=== PATIENT | male | born 1945 | race Caucasian/White ===

== ENCOUNTER 2019-01-03 15:04 | Emergency (ER) | payer MEDICARE, OTHER, SELFPAY ==
[2019-01-03 15:20] VITALS: BP 128/81; PULSE 69; RESP 20; TEMP 36.7; O2SAT 98
[2019-01-03 17:00] VITALS: BP 136/69; PULSE 77; RESP 16; O2SAT 99
[2019-01-03 18:00] VITALS: BP 136/77; PULSE 78; RESP 18; O2SAT 95
--- NOTE | 2019-01-03 18:11 | ED.EXTPRO ---
HPI - Extremity Problem General Chief complaint: Extremity Problem,Nontraumatic Stated complaint: thinks he has gout of his right foot Time Seen by Provider: 01/03/19 18:11 Source: patient and family Mode of arrival: ambulatory Limitations: no limitations History of Present Illness HPI Narrative: 73-year-old male, never smoker with history of gout, hypertension, diabetes and cellulitis presents with a chief complaint right great toe and ft pain with swelling and redness. He states this is very similar to prior episodes gout. He denies any systemic findings such as fever, chills nor nausea or vomiting. He denies any injury. He denies any chest pain, shortness of breath. MD Complaint: extremity pain, extremity swelling and joint swelling Onset (ago): day(s) Pain Consistency: constant Location: right Quality: aching and sharp Radiation: none Relieving factors: rest Exacerbating factors: weight bearing and walking Associated symptoms: denies other symptoms Related Data Home Medications Medication Instructions Recorded Confirmed atorvastatin [Lipitor] 10 mg PO QDAY #0 11/12/16 01/03/19 benazepril-hydrochlorothiazide 1 tab PO QDAY #0 11/12/16 01/03/19 lansoprazole [Prevacid] 15 mg PO DAILY #0 11/12/16 01/03/19 omega 5-cyv-ybb-fish oil [Fish Oil] 1,000 mg PO DAILY #0 03/29/17 01/03/19 multivitamin 1 tab PO DAILY 01/03/19 01/03/19 Previous Rx's Medication Instructions Recorded colchicine 0.6 mg PO DAILY #14 tab 01/03/19 doxycycline monohydrate 100 mg PO BID 10 Days #20 cap 01/03/19 hydrocodone-acetaminophen 1 tab PO Q4-6H PRN #10 tab 01/03/19 indomethacin 50 mg PO TID #20 cap 01/03/19 Allergies Allergy/AdvReac Type Severity Reaction Status Date / Time ampicillin [AMPICILLIN] Allergy Unknown Verified 04/14/18 13:55 ceftriaxone [From ROCEPHIN] Allergy Unknown Verified 04/14/18 13:55 cephalexin [CEPHALEXIN] Allergy Unknown Verified 04/14/18 13:55 erythromycin base Allergy Unknown Verified 04/14/18 13:55 [ERYTHROMYCIN BASE] levofloxacin [From LEVAQUIN] Allergy Unknown HALLUCINATI Verified 04/14/18 13:55 ON Penicillins [PENICILLINS] Allergy Unknown Verified 04/14/18 13:55 Review of Systems Constitutional Denies chills, Denies fever(s), Denies lethargy and Denies weakness Eyes Denies change in vision, Denies eye discharge, Denies irritation and Denies loss of vision ENT Ears, Nose, Mouth, and Throat: Denies change in voice, Denies neck pain and Denies sore throat Cardiovascular Denies chest pain, Denies irregular heart rhythm, Denies lightheadedness, Denies palpitations, Denies dyspnea, Denies dyspnea on exertion and Denies orthopnea Respiratory Denies cough, Denies dyspnea, Denies dyspnea on exertion and Denies wheezing Gastrointestinal Gastrointestinal: Denies abdominal pain, Denies change in bowel habits, Denies diarrhea, Denies nausea and Denies vomiting Genitourinary Denies hematuria, Denies flank pain, Denies urinary incontinence and Denies urinary urgency Musculoskeletal Reports joint swelling, Reports limited range of motion and Denies neck pain Integumentary/Breasts Denies pruritus, Reports erythema, Denies rash, Reports skin pain, Reports skin swelling and Denies wounds Neurologic Denies confusion, Denies loss of vision and Denies weakness Psychiatric Denies anxiety, Denies confusion, Denies depression, Denies homicidal ideation and Denies suicidal ideation Endocrine Denies palpitations Hematologic/Lymphatic Denies easy bruising Allergic/Immunologic Denies wheezing PFSH Social History Smoking Status: Never smoker Social History Smoking Status: Never smoker Exam Narrative Exam Narrative: GENERAL: 73-year-old male, a bit overweight, well nourished, alert and oriented, in mild distress HEAD: Atraumatic. Normocephalic. No temporal or scalp tenderness. EYES: Pupils equal round and reactive. Extraocular motions intact. No scleral icterus. No injection or drainage. ENT: Nose without bleeding, purulent drainage or septal hematoma. Throat without erythema, tonsillar hypertrophy or exudate. Uvula midline. Airway patent. NECK: Trachea midline. No JVD or lymphadenopathy. Supple, nontender, no meningeal signs. CARDIOVASCULAR: Regular rate and rhythm without murmurs, gallops, or rubs. RESPIRATORY: Clear to auscultation. Breath sounds equal bilaterally. No wheezes, rales, or rhonchi. GASTROINTESTINAL: Abdomen soft, non-tender, nondistended. No hepato-splenomegaly, or palpable masses. No guarding. EXTREMITIES: Right great toe is erythematous, swollen and quite tender to palpation. The erythema extends a bit on the dorsum of his foot is warm to the touch. BACK: Nontender without deformity or crepitance. No flank tenderness. NEURO: AOx3. SKIN: No rash or erythema. Initial Vital Signs Initial Vital Signs: Vital Signs Temperature 98.0 F 01/03/19 15:20 Pulse Rate 69 01/03/19 15:20 Respiratory Rate 20 01/03/19 15:20 Blood Pressure 128/81 01/03/19 15:20 Pulse Oximetry 98 01/03/19 15:20 Course Orders Ordered: Discontinued Medications Hydrocodone Bitart/Acetaminophen (Vicodin Prepack) 1 bottle MISC SEEINSTR ONE Stop: 01/03/19 20:10 Last Admin: 01/03/19 20:18 Dose: 1 bottle Colchicine (Colcrys) 1.2 mg PO NOW ONE Stop: 01/03/19 18:27 Last Admin: 01/03/19 19:00 Dose: 1.2 mg Vital Signs - 8 hr 01/03/19 19:52 Pulse Rate 94 H Blood Pressure [Left Arm] 126/48 L Pulse Oximetry 97 MDM - Extremity (Nontraumatic) Lab Data Result diagrams: 01/03/19 18:40 Lab Results 01/03/19 01/03/19 Range/Units 18:40 18:40 WBC 9.9 (4.5-11.0) X10^3/uL RBC 3.68 L (4.5-5.9) X10^6/uL Hgb 12.7 L (13.5-17.5) g/dL Hct 37.4 L (41-53) % MCV 101.6 H (80-100) fL MCH 34.6 H (26-34) PG MCHC 34.1 (30-36) % RDW 12.4 (11.6-14.8) % Plt Count 167 (150-400) X10^3/uL Neut % (Auto) 78.4 H (50-75) % Lymph % (Auto) 7.4 L (25-40) % [place] % (Auto) 12.6 (3-14) % Eos % (Auto) 1.3 L (2-4) % Baso % (Auto) 0.3 (0-2) % Neut # (Auto) 7700 H (4465-4332) /uL Lymph # (Auto) 700 L (2283-6100) /uL [place] # (Auto) 1300 H (0-900) /uL Eos # (Auto) 100 (0-450) /uL Baso # (Auto) 0 (0-100) /uL ESR 53 H (0-15) MM/HR Uric Acid 8.0 (3.5-8.5) mg/dL C-Reactive Protein 9.0 H (<1.0) mg/dL Imaging Data Abdominal x-ray: Attestation: I personally reviewed and interpreted this imaging study as follows: My impression: non specific bowel gas pattern MDM Narrative Medical decision making narrative: The patient presents with chief complaint of symptoms consistent with prior episode of gout, additionally the patient has had cellulitis in the past and states this feels much different. On exam he certainly has concern for cellulitis. Labs are unhelpful in differentiating. Ultrasound rules out a clot. I discussed at length with the patient my desire to treat both cellulitis and gout, he shares this opinion and understands. Discharge Plan Departure Patient Disposition: Home Clinical Impression: Gout Qualifiers: Gout site: foot Gout etiology: unspecified cause Chronicity: acute Laterality: right Qualified Code(s): M10.9 - Gout, unspecified Cellulitis Qualifiers: Site of cellulitis: extremity Site of cellulitis of extremity: lower extremity Laterality: right Qualified Code(s): L03.115 - Cellulitis of right lower limb Discharge Date/Time: 01/03/19 20:31 Interventions: ED Discharge Assessment Last Done: 01/03/19 20:29 Instructions: DI for Cellulitis -- Adult, DI for Gout Activity Restrictions/Additional Instructions: *You have been diagnosed with [ right foot gout, possible early cellulitis ] *What to do: *Take medications as directed *Follow up with your primary care provider in 2-3 days, call for an appointment. Let them know you were seen in the Emergency Department and that we ask that you be seen in follow up *Return to ER if you should have any new, worsening or concerning symptoms, such as [ ] Prescriptions: New hydrocodone-acetaminophen 5-325 mg tablet 1 tab PO Q4-6H PRN (Reason: pain) Qty: 10 RF: 0 doxycycline monohydrate 100 mg capsule 100 mg PO BID 10 Days Qty: 20 RF: 0 colchicine 0.6 mg tablet 0.6 mg PO DAILY Qty: 14 RF: 0 indomethacin 50 mg capsule 50 mg PO TID Qty: 20 RF: 0 No Action benazepril-hydrochlorothiazide 20 MG/25 MG tablet 1 tab PO QDAY Qty: 0 RF: 0 atorvastatin [Lipitor] 10 MG tablet 10 mg PO QDAY Qty: 0 RF: 0 lansoprazole [Prevacid] 15 MG capsule,delayed release(DR/EC) 15 mg PO DAILY Qty: 0 RF: 0 omega 0-jxe-xqt-fish oil [Fish Oil] 1,000 MG capsule 1,000 mg PO DAILY Qty: 0 RF: 0 multivitamin Tablet 1 tab PO DAILY RF: 0
--- NOTE | 2019-01-03 18:26 | DI.US.S_ITS ---
PROCEDURE: US PERIPH VENOUS LOW EXTREM RT INDICATIONS: PAIN, EDEMA TECHNIQUE: Real-time imaging, as well as color and pulse Doppler interrogation, were performed of the lower extremity deep veins from the inguinal ligament to the popliteal fossa. COMPARISON: None. FINDINGS: The deep veins are normally compressible, and free of intraluminal thrombus. Color and pulse Doppler demonstrate normal phasic intraluminal flow. There is normal augmentation response to distal compression maneuver. IMPRESSION: Negative right lower extremity duplex ultrasound for DVT. Dictated by: Chauncey Call M.D. on 01/03/2019 at 19:12 Approved by: Chauncey Call M.D. on 01/03/2019 at 19:13
[2019-01-03 18:58] LABS: Add Manual Diff / Slide Review NO; Basophils Absolute Auto 0 /uL (0-100); Basophils Percent Auto 0.3 % (0-2); Eosinophils Absolute Auto 100 /uL (0-450); Eosinophils Percent Auto 1.3 % (2-4); Hematocrit 37.4 % (41-53); Hemoglobin 12.7 g/dL (13.5-17.5); Lymphocytes Absolute Auto 700 /uL (1100-4500); Lymphocytes Percent Auto 7.4 % (25-40); Mean Corpuscular HGB Conc 34.1 % (30-36); Mean Corpuscular Hemoglobin 34.6 PG (26-34); Mean Corpuscular Volume 101.6 fL (80-100); Monocytes Absolute Auto 1300 /uL (0-900); Monocytes Percent Auto 12.6 % (3-14); Neutrophils Absolute Auto 7700 /uL (1500-7000); Neutrophils Percent Auto 78.4 % (50-75); Platelet Count 167 X10^3/uL (150-400); Red Blood Cell Count 3.68 X10^6/uL (4.5-5.9); Red Cell Distribution Width 12.4 % (11.6-14.8); White Blood Cell Count 9.9 X10^3/uL (4.5-11.0)
[2019-01-03] MEDS: COLCHICINE 0.6 MG TABLET 1.2 MG PO (19:00)
[2019-01-03 19:30] LABS: Erythrocyte Sedimentation Rate 53 MM/HR (0-15)
[2019-01-03 19:52] VITALS: BP 126/48; PULSE 94; O2SAT 97
[2019-01-03] MEDS: HYDROCODONE/ACET 5/325 PREPACK 1 BOTTLE MISC (20:18)
== END 2019-01-03 20:31 | disposition home or self-care (01) ==
PROVIDERS: Emergency Provider Emergency Medicine
DX: M10.9 Gout, unspecified (principal); L03.115 Cellulitis of right lower limb
CPT/HCPCS: 84550; 85025; 85651; 86140; 93971; 99283; 99284

== ENCOUNTER 2019-08-10 14:10 | Emergency (ER) | payer MEDICARE, OTHER, SELFPAY ==
[2019-08-10 14:18] VITALS: BP 146/84; PULSE 98; RESP 16; TEMP 37.1; O2SAT 99; BMI 30.5
== END 2019-08-10 16:05 | disposition left against medical advice (07) ==
PROVIDERS: Emergency Provider Emergency Medicine
DX: M79.645 Pain in left finger(s) (principal)
CPT/HCPCS: 99281

== ENCOUNTER 2019-09-12 10:52 | Emergency (ER) | payer MEDICARE, OTHER, SELFPAY ==
[2019-09-12 10:55] VITALS: BP 153/77; PULSE 84; RESP 13; TEMP 36.5; O2SAT 99
--- NOTE | 2019-09-12 12:10 | DI.US.S_ITS ---
PROCEDURE: US PERIPH VENOUS LOW EXTREM LT INDICATIONS: PAIN, EDEMA TECHNIQUE: Real-time imaging, as well as color and pulse Doppler interrogation, were performed of the lower extremity deep veins from the inguinal ligament to the popliteal fossa. COMPARISON: None. FINDINGS: The common femoral, femoral and popliteal veins are normally compressible, and free of intraluminal thrombus. Color and pulse Doppler demonstrate normal phasic intraluminal flow. There is normal augmentation response to distal compression maneuver. IMPRESSION: No deep venous thrombosis in the left lower extremity. Dictated by: Ame Joseph M.D. on 09/12/2019 at 12:35 Approved by: Ame Joseph M.D. on 09/12/2019 at 12:35
--- NOTE | 2019-09-12 12:45 | ED_ITS ---
HPI - Extremity Problem <BIRDIE Aviles - Last Filed: 09/12/19 21:49> General Chief complaint: Extremity Problem,Nontraumatic Stated complaint: POSSIBLE BLOOD CLOT OR CELUTIUS LEFT LEG Time Seen by Provider: 09/12/19 12:10 Source: patient Mode of arrival: Ambulatory Limitations: no limitations History of Present Illness HPI Narrative: This is a pleasant 74-year-old gentleman, nonsmoker, who presents to ED with chief complain of nontraumatic left lower leg swelling for last 3 days. Patient reports history of cellulitis on the same leg which starts from heel with red streaks along the swelling. Patient denies any erythema at this time. Patient denies fever, chills, nausea or vomiting, warm to touch, or pain. Patient recently had left hand surgery and had been on narcotic pain medications, [place], and had decreased appetite and has not been eating well. Patient denies chest pain, breathing difficulty. Patient has been elevating affected leg over the weekend but the swelling had not improved much. Patient does take full dose of aspirin daily. Related Data Home Medications Medication Instructions Recorded Confirmed atorvastatin [Lipitor] 10 mg PO DAILY #0 11/12/16 09/12/19 benazepril-hydrochlorothiazide 1 tab PO DAILY #0 11/12/16 09/12/19 lansoprazole [Prevacid] 15 mg PO DAILY #0 11/12/16 09/12/19 omega 3-isu-ewn-fish oil [Fish Oil] 1,000 mg PO DAILY #0 03/29/17 01/03/19 multivitamin 1 tab PO DAILY 01/03/19 09/12/19 fluocinonide 1 applic TOPICAL DIRECTED 08/10/19 09/12/19 sulfamethoxazole-trimethoprim 1 tab PO BID 09/12/19 09/12/19 Allergies Allergy/AdvReac Type Severity Reaction Status Date / Time ampicillin [AMPICILLIN] Allergy Unknown Verified 08/10/19 14:23 ceftriaxone [From ROCEPHIN] Allergy Unknown Verified 08/10/19 14:23 cephalexin [CEPHALEXIN] Allergy Unknown Verified 08/10/19 14:23 erythromycin base Allergy Unknown Verified 08/10/19 14:23 [ERYTHROMYCIN BASE] levofloxacin [From LEVAQUIN] Allergy Unknown HALLUCINATI Verified 08/10/19 14:23 ON Penicillins [PENICILLINS] Allergy Unknown Verified 08/10/19 14:23 Review of Systems <BIRDIE Aviles - Last Filed: 09/12/19 21:49> Review of Systems Narrative: General: Denies fever, chills, fatigue, malaise, sweats. HEENT: Denies sinus pain, ear pain, sore throat, difficulty swallowing, dizziness. Respiratory: Denies dyspnea, cough, wheezing, hemoptysis, sputum. Cardiovascular: Denies chest pain, palpitations, orthopnea, edema. Gastrointestinal: Denies nausea, vomiting, abdominal pain, diarrhea, constipation, melena. : Denies dysuria, frequency, incontinence, hematuria, urinary retention. Musculoskeletal: See HPI Skin: Denies rash, skin lesions, or other. Neurologic: Denies weakness, headache, numbness, change in speech, confusion, seizures, incoordination. Psychiatric: No concerning psychosocial issues. 12-point review of systems is negative except for those stated above. Patient History <BIRDIE Aviles - Last Filed: 09/12/19 21:49> Surgical History Hx of hand surgery (Acute) Social History Smoking Status: Never smoker alcohol intake frequency: 0-2 drinks per day Exam <BIRDIE Aviles - Last Filed: 09/12/19 21:49> Narrative Exam Narrative: GEN: Alert, oriented x 3, well appearing and nourished, and in no acute distress. Head: Normal cephalic, atraumatic. No scalp or temporal tenderness, palpable mass or rash. EYES: Pupils are equal, round, and reactive to light and accommodation. Extraocular muscles are intact bilaterally. There is no subconjunctival hemorrhage, exudate and sclera non-icteric. ENT: Bilateral auditory canals and tympanic membranes clear. Hearing grossly intact. Nose without bleeding, purulent discharge or deviation. Facial sinuses nontender to palpate. Mucous membrane moist, no mucosal lesion. Throat without erythema, tonsillar hypertrophy or exudate. Uvula in midline, airway patent. Neck: Trachea in midline. No JVD, non-tender without lymphadenopathy. No masses or thyroid megaly. Supple, non-tender and no meningeal signs. CARDIAC: Normal regular rate and rhythm without murmurs, gallops, or rubs. No ch est wall tenderness. No peripheral edema, cyanosis or pallor. Capillary refill is less than 2 seconds. RESPIRATORY: Lungs are clear to auscultate bilaterally. No cough, wheezes, rales, or rhonchi. No stridor, respiratory distress, increase work of breathing, or accessary muscle used. ABD: Abdomen soft, nontender and non-distended. No guarding or rebound tenderness to palpate. Bowel sounds are normal in all 4 quadrants. There is no palpable masses or organomegaly. EXT: Hand splint applied on left hand. SKIN: Warm, dry, normal color for patient. No erythema, lesions or rash over visible areas. BACK: Nontender without deformity or crepitance. No flank tenderness. NEUROLOGICAL: Alert and oriented to place, time and person. Sensation and motor function intact bilaterally. No facial droops, dysphasia. PSYCHIATRIC: Good judgement and reason, without hallucinations, abnormal affect or abnormal behaviors during the examination. Initial Vital Signs Initial Vital Signs: Vital Signs Temperature 97.7 F 09/12/19 10:55 Pulse Rate 84 09/12/19 10:55 Respiratory Rate 13 09/12/19 10:55 Blood Pressure 153/77 H 09/12/19 10:55 Pulse Oximetry 99 09/12/19 10:55 Extrem Left lower extremity: knee Details: normal to inspection and normal ROM; no tenderness, lower leg Details: localized swelling (Generalized swelling to Knee below) and pitting edema Details: 2+; no erythema, no tenderness, no palpable cords, no abrasions, no lacerations, no ecchymosis, no crepitus, no foreign bodies, no penetrating wound, no deformity and no unusual warmth, ankle Details: swelling and normal ROM; no warmth and foot Details: normal capillary refill, vascular exam Details: dorsalis pedis pulse present and normal capillary refill, tendon exam Details: active flexion normal and active extension normal and motor-sensory exam Details: light-touch normal <Sol Sharma MD - Last Filed: 09/14/19 04:39> Initial Vital Signs Initial Vital Signs: Vital Signs Temperature 97.7 F 09/12/19 10:55 Pulse Rate 84 09/12/19 10:55 Respiratory Rate 13 09/12/19 10:55 Blood Pressure 153/77 H 09/12/19 10:55 Pulse Oximetry 99 09/12/19 10:55 Scores <BIRDIE Aviles - Last Filed: 09/12/19 21:49> GCS [place] coma scale eye opening: Spontaneous [place] coma scale verbal response: Orientated [place] coma scale motor response: Obey commands [place] coma scale total score: 15 Wells' Criteria for DVT Active Cancer (Treatment within 6 months): No Bedridden recently >3 days or major surgery within 4 weeks: No Calf Swelling >3cm compared to other leg: Yes Collateral (nonvericose) superficial veins present: No Entire leg swollen: No Localized tenderness along the deep vein system: No Pitting edema, confined to symtomatic leg: Yes Paralysis, paresis, or recent plaster immobilization of ext: No Previously documented DVT: No Alternative dx to DVT as likely or more likely: Yes Wells' criteria for DVT: 0 Course <BIRDIE Aviles - Last Filed: 09/12/19 21:49> Orders Ordered: ED Orders 09/12/19 13:00 B Type Natriuretic Peptide Stat Complete Blood Count AUTO DIFF Stat Comprehensive Metabolic Panel Stat Partial Thromboplastin Time Stat Consultations Consultation #1: Dr. Flynn (PCP) for close follow up for repeat Na/Cl test and leg swelling Vital Signs Vital signs: Vital Signs - 8 hr 09/12/19 10:55 Temperature 97.7 F Pulse Rate 84 Respiratory Rate 13 Blood Pressure 153/77 H Pulse Oximetry 99 <Sol Sharma MD - Last Filed: 09/14/19 04:39> Orders Ordered: ED Orders 09/12/19 13:00 B Type Natriuretic Peptide Stat Complete Blood Count AUTO DIFF Stat Comprehensive Metabolic Panel Stat Partial Thromboplastin Time Stat Vital Signs Vital signs: Vital Signs - 8 hr 09/12/19 10:55 Temperature 97.7 F Pulse Rate 84 Respiratory Rate 13 Blood Pressure 153/77 H Pulse Oximetry 99 MDM - Extremity (Nontraumatic) <BIRDIE Aviles - Last Filed: 09/12/19 21:49> Differential Diagnosis Differential diagnosis: Likely cellulitis, lower extremity edema, deep vein thrombosis of lower extremity and other Medical Records Attestation: I reviewed the patient's medical records. Lab Data Attestation: I reviewed the patient's lab results. Result diagrams: 09/12/19 13:00 09/12/19 13:00 Labs: Lab Results 09/12/19 09/12/19 09/12/19 Range/Units 13:00 13:00 13:00 WBC 8.1 (4.5-11.0) X10^3/uL RBC 3.55 L (4.5-5.9) X10^6/uL Hgb 12.5 L (13.5-17.5) g/dL Hct 35.3 L (41-53) % MCV 99.5 (80-100) fL MCH 35.4 H (26-34) PG MCHC 35.5 (30-36) % RDW 13.1 (11.6-14.8) % Plt Count 198 (150-400) X10^3/uL Neut % (Auto) 72.0 (50-75) % Lymph % (Auto) 12.0 L (25-40) % [place] % (Auto) 14.9 H (3-14) % Eos % (Auto) 0.6 L (2-4) % Baso % (Auto) 0.5 (0-2) % Neut # (Auto) 5900 (0465-0323) /uL Lymph # (Auto) 1000 L (1029-4572) /uL [place] # (Auto) 1200 H (0-900) /uL Eos # (Auto) 0 (0-450) /uL Baso # (Auto) 0 (0-100) /uL APTT 35 (26.4-36.2) SECONDS Sodium 128 L (137-145) mmol/L Potassium 3.6 (3.4-5.1) mmol/L Chloride 87 L (98-107) mmol/L Carbon Dioxide 27 (22-32) mmol/L BUN 22 H (9-20) mg/dL Creatinine 1.50 H (0.66-1.25) mg/dL Estimated GFR 45.7 L (>60) mL/min BUN/Creatinine Ratio 14.7 (6-22) Glucose 93 (80-110) mg/dL Calcium 9.3 (8.4-10.2) mg/dL Total Bilirubin 1.1 (0.2-1.3) mg/dL AST 52 (17-59) IU/L ALT 28 (<50) IU/L Alkaline Phosphatase 81 (38-126) U/L B-Natriuretic Peptide < 100 (<100) Total Protein 7.0 (6.3-8.2) g/dL Albumin 4.3 (3.5-5.0) g/dL Globulin 2.7 (1.7-4.1) g/dL Albumin/Globulin Ratio 1.6 (1.0-2.8) Imaging Data US-LLE doppler: Radiologist's impression: [address] [address] Ultrasound Report Signed Patient: Matthew Ochoa EMR#: [id number] : 5Acct:[id number] Age/Sex: 74 / MDate of Service: 09/12/19 Loc: ED Accession Number: [id number] Procedure: US periph venous low extrem lt Ordering Provider: Sol Sharma MD PROCEDURE: US PERIPH VENOUS LOW EXTREM LT INDICATIONS: PAIN, EDEMA TECHNIQUE: Real-time imaging, as well as color and pulse Doppler interrogation, were performed of the lower extremity deep veins from the inguinal ligament to the popliteal fossa. COMPARISON: None. FINDINGS: The common femoral, femoral and popliteal veins are normally compressible, and free of intraluminal thrombus. Color and pulse Doppler demonstrate normal phasic intraluminal flow. There is normal augmentation response to distal compression maneuver. IMPRESSION: No deep venous thrombosis in the left lower extremity. Dictated by: Ame Joseph M.D. on 09/12/2019 at 12:35 Approved by: Ame Joseph M.D. on 09/12/2019 at 12:35 [facility] Narrative Medical decision making narrative: This is a pleasant 74-year-old gentleman who presents to ED with nontraumatic left lower leg swelling for 3 days. Patient daily takes full dose of aspirin. Patient does not endorse constitutional symptoms or pain on affected foot. Doppler Ultrasound test on left lower leg does not show DVT. No leukocytosis or shift left seen today's blood test. Mildly decreased H&H as 12.5/35.3. Also noted decreased GFR of 45.7 with Creatine of 1.5 with mildly elevated BUN of 22. Patient had same creatinine level about 2 years ago which he had recovered 4 months after. The Patient's lung sounds are clear and BNP was negative. Patient has no history of hyponatremia in the past. Today's sodium and chloride was low as 128 and 87. This may due to given patient's history of decreased p.o. intake after the surgery. Patient reports started to eat more last couple of days. Patient does report mild musculoskeletal witnessed. Patient denies headache, nausea or vomiting, seizure activity. Patient was able to tolerate a sandwich and liquid without nausea or vomiting in ED. Spoke with Dr. Flynn at [facility] and informed the findings from today's visit. Dr. Flynn agrees with outpatient treatment with increasing NaCl intake orally to monitor for signs and symptoms for cellulitis. Close follow-up with Dr. Hinojosa for recheck in 2-3 days and to set up an appointment. Informed the findings and the discussions with Dr. Flynn and the patient agrees with the treatment plan. No further questions were expressed at this time. <Sol Sharma MD - Last Filed: 09/14/19 04:39> Lab Data Labs: Lab Results 09/12/19 09/12/19 09/12/19 Range/Units 13:00 13:00 13:00 WBC 8.1 (4.5-11.0) X10^3/uL RBC 3.55 L (4.5-5.9) X10^6/uL Hgb 12.5 L (13.5-17.5) g/dL Hct 35.3 L (41-53) % MCV 99.5 (80-100) fL MCH 35.4 H (26-34) PG MCHC 35.5 (30-36) % RDW 13.1 (11.6-14.8) % Plt Count 198 (150-400) X10^3/uL Neut % (Auto) 72.0 (50-75) % Lymph % (Auto) 12.0 L (25-40) % [place] % (Auto) 14.9 H (3-14) % Eos % (Auto) 0.6 L (2-4) % Baso % (Auto) 0.5 (0-2) % Neut # (Auto) 5900 (8839-9610) /uL Lymph # (Auto) 1000 L (5596-1405) /uL [place] # (Auto) 1200 H (0-900) /uL Eos # (Auto) 0 (0-450) /uL Baso # (Auto) 0 (0-100) /uL APTT 35 (26.4-36.2) SECONDS Sodium 128 L (137-145) mmol/L Potassium 3.6 (3.4-5.1) mmol/L Chloride 87 L (98-107) mmol/L Carbon Dioxide 27 (22-32) mmol/L BUN 22 H (9-20) mg/dL Creatinine 1.50 H (0.66-1.25) mg/dL Estimated GFR 45.7 L (>60) mL/min BUN/Creatinine Ratio 14.7 (6-22) Glucose 93 (80-110) mg/dL Calcium 9.3 (8.4-10.2) mg/dL Total Bilirubin 1.1 (0.2-1.3) mg/dL AST 52 (17-59) IU/L ALT 28 (<50) IU/L Alkaline Phosphatase 81 (38-126) U/L B-Natriuretic Peptide < 100 (<100) Total Protein 7.0 (6.3-8.2) g/dL Albumin 4.3 (3.5-5.0) g/dL Globulin 2.7 (1.7-4.1) g/dL Albumin/Globulin Ratio 1.6 (1.0-2.8) Discharge Plan Departure Patient Disposition: Home Clinical Impression: Edema of left lower extremity, Hyponatremia, Hypochloremia, Decreased renal function Discharge Date/Time: 09/12/19 15:24 Instructions: DI for Hyponatremia, DI for Peripheral Edema, Unilateral Activity Restrictions/Additional Instructions: You have been diagnosed with [left lower leg edema, low in sodium and chloride, decreased kidney function. According to ultrasound today, there is no DVT in left lower leg. You're blood test does not show infection indication. Your blood test shows low in sodium and chloride today. Sodium was 128 and chloride was 87 with a GFR of 45.7. Please increase sodium and chloride intake next couple of days. Please alternate drinking sports drinks and water. Please watch for fever, spreading redness, warmth, drainage from left lower leg. Please elevate the affected leg during rest]. What to do: *Take your medications as directed. Continue with her current medications. No new medications to go home. *Follow up with your primary care provider in 2-3 days, call for an appointment. Let them know you were seen in the ED and that we asked you to be seen in follow up. *Return to ED if you have any new, worsening, or concerning symptoms, such as [chest pain, breathing difficulty, weakness, headache, seizure activity, warmth/redness occurring to left lower leg and fever, unable to void for prolonged time, flank pain]. Prescriptions: No Action benazepril-hydrochlorothiazide 20 MG/25 MG tablet 1 tab PO DAILY Qty: 0 RF: 0 atorvastatin [Lipitor] 10 MG tablet 10 mg PO DAILY Qty: 0 RF: 0 lansoprazole [Prevacid] 15 MG capsule,delayed release(DR/EC) 15 mg PO DAILY Qty: 0 RF: 0 omega 5-dvk-uaq-fish oil [Fish Oil] 1,000 MG capsule 1,000 mg PO DAILY Qty: 0 RF: 0 fluocinonide 0.05 % solution 1 applic TOPICAL DIRECTED RF: 0 sulfamethoxazole-trimethoprim 800-160 mg Tablet 1 tab PO BID RF: 0 multivitamin Tablet 1 tab PO DAILY RF: 0
[2019-09-12 13:19] LABS: Add Manual Diff / Slide Review NO; Basophils Absolute Auto 0 /uL (0-100); Basophils Percent Auto 0.5 % (0-2); Eosinophils Absolute Auto 0 /uL (0-450); Eosinophils Percent Auto 0.6 % (2-4); Hematocrit 35.3 % (41-53); Hemoglobin 12.5 g/dL (13.5-17.5); Lymphocytes Absolute Auto 1000 /uL (1100-4500); Mean Corpuscular HGB Conc 35.5 % (30-36); Mean Corpuscular Hemoglobin 35.4 PG (26-34); Mean Corpuscular Volume 99.5 fL (80-100); Monocytes Absolute Auto 1200 /uL (0-900); Monocytes Percent Auto 14.9 % (3-14); Neutrophils Absolute Auto 5900 /uL (1500-7000); PTT Partial Thromboplastin Tim 35 SECONDS (26.4-36.2); Platelet Count 198 X10^3/uL (150-400); Red Blood Cell Count 3.55 X10^6/uL (4.5-5.9); Red Cell Distribution Width 13.1 % (11.6-14.8); White Blood Cell Count 8.1 X10^3/uL (4.5-11.0)
[2019-09-12 13:24] LABS: Alanine Aminotransferase 28 IU/L (<50); Albumin 4.3 g/dL (3.5-5.0); Albumin Globulin Ratio 1.6 (1.0-2.8); Alkaline Phosphatase 81 U/L (38-126); Aspartate Aminotransferase 52 IU/L (17-59); BUN Creatinine Ratio 14.7 (6-22); Bilirubin Total 1.1 mg/dL (0.2-1.3); Blood Urea Nitrogen 22 mg/dL (9-20); Calcium 9.3 mg/dL (8.4-10.2); Carbon Dioxide 27 mmol/L (22-32); Chloride 87 mmol/L (98-107); Estimated Glomerular Filt Rate 45.7 mL/min (>60); Globulin 2.7 g/dL (1.7-4.1); Glucose 93 mg/dL (80-110); HEMOLYSIS < 15 (0-50); Potassium 3.6 mmol/L (3.4-5.1); Sodium 128 mmol/L (137-145)
[2019-09-12 13:48] LABS: B Type Natriuretic Peptide < 100 (<100)
== END 2019-09-12 15:24 | disposition home or self-care (01) ==
PROVIDERS: Emergency Provider Nurse Practitioner Family
DX: R60.0 Localized edema (principal); E87.1 Hypo-osmolality and hyponatremia; E87.8 Other disorders of electrolyte and fluid balance, not elsewhere classified; N28.9 Disorder of kidney and ureter, unspecified; I10 Essential (primary) hypertension; E78.5 Hyperlipidemia, unspecified; R79.89 Other specified abnormal findings of blood chemistry
CPT/HCPCS: 36415; 80053; 83880; 85025; 85730; 93971; 99282; 99284

== ENCOUNTER 2019-09-16 13:00 | Emergency (ER) | payer MEDICARE, OTHER, SELFPAY ==
[2019-09-16 13:09] VITALS: BP 137/90; PULSE 93; RESP 16; TEMP 36.6; O2SAT 96; BMI 30.8
--- NOTE | 2019-09-16 13:18 | DI.RAD.S_ITS ---
PROCEDURE: XR CHEST 1V INDICATIONS: chest pain TECHNIQUE: One view of the chest was acquired. COMPARISON: [facility], , CHEST 1 VIEW, 11/12/2016, 18:47. FINDINGS: Surgical changes and devices: None. Lungs and pleura: Lungs are clear. No pleural effusions or pneumothorax. Mediastinum: Mediastinal contours appear normal. Heart size is normal. Bones and chest wall: No suspicious bony lesions. Overlying soft tissues appear unremarkable. IMPRESSION: No acute disease Dictated by: Akhil Rizo M.D. on 09/16/2019 at 13:48 Approved by: Akhil Rizo M.D. on 09/16/2019 at 13:49
[2019-09-16 13:40] VITALS: BP 138/73; PULSE 70; PULSE 71; RESP 18; O2SAT 99
[2019-09-16 13:46] LABS: Add Manual Diff / Slide Review NO; Basophils Absolute Auto 0 /uL (0-100); Basophils Percent Auto 0.5 % (0-2); Eosinophils Absolute Auto 100 /uL (0-450); Eosinophils Percent Auto 1.8 % (2-4); Hematocrit 29.9 % (41-53); Hemoglobin 10.6 g/dL (13.5-17.5); Lymphocytes Absolute Auto 900 /uL (1100-4500); Lymphocytes Percent Auto 12.2 % (25-40); Mean Corpuscular HGB Conc 35.3 % (30-36); Mean Corpuscular Hemoglobin 35.9 PG (26-34); Mean Corpuscular Volume 101.8 fL (80-100); Monocytes Absolute Auto 1200 /uL (0-900); Monocytes Percent Auto 16.3 % (3-14); Neutrophils Absolute Auto 4900 /uL (1500-7000); Neutrophils Percent Auto 69.2 % (50-75); Platelet Count 201 X10^3/uL (150-400); Red Blood Cell Count 2.94 X10^6/uL (4.5-5.9); Red Cell Distribution Width 13.5 % (11.6-14.8); White Blood Cell Count 7.1 X10^3/uL (4.5-11.0)
[2019-09-16 13:55] LABS: Prothrombin Time 11.1 SECONDS (10.1-12.7)
[2019-09-16 13:57] LABS: PTT Partial Thromboplastin Tim 34 SECONDS (26.4-36.2)
[2019-09-16 14:01] LABS: B Type Natriuretic Peptide < 100 (<100)
[2019-09-16 14:04] LABS: Alanine Aminotransferase 20 IU/L (<50); Albumin 4.1 g/dL (3.5-5.0); Albumin Globulin Ratio 1.6 (1.0-2.8); Alkaline Phosphatase 67 U/L (38-126); Aspartate Aminotransferase 42 IU/L (17-59); Bilirubin Total 0.6 mg/dL (0.2-1.3); Blood Urea Nitrogen 24 mg/dL (9-20); Calcium 9.4 mg/dL (8.4-10.2); Carbon Dioxide 29 mmol/L (22-32); Chloride 95 mmol/L (98-107); Creatine Kinase 102 U/L (55-170); Estimated Glomerular Filt Rate 59.2 mL/min (>60); Globulin 2.6 g/dL (1.7-4.1); Glucose 88 mg/dL (80-110); HEMOLYSIS 16 (0-50); Lipase 273 U/L (23-300); Potassium 3.8 mmol/L (3.4-5.1); Sodium 135 mmol/L (137-145); Total Protein 6.7 g/dL (6.3-8.2)
--- NOTE | 2019-09-16 14:09 | ED.EXTPRO ---
HPI - Extremity Problem General Chief complaint: Extremity Problem,Nontraumatic Stated complaint: concern about left calf blood clot Time Seen by Provider: 09/16/19 13:10 Source: patient Mode of arrival: Ambulatory Limitations: no limitations History of Present Illness HPI Narrative: Patient is a 74-year-old male who presents with left leg swelling. He has actually seen and evaluated here 4 days ago he had a rule out of DVT blood work at that time as well. His he recently had outpatient surgery on his left pinky finger for dislocation. He states that over last 4 days it has gotten significantly worse. He says that previously when it has been this bad there has been cellulitis however it does not feel like cellulitis or look like cellulitis this time. He has not had any fever or chills. He has minimal swelling on his left leg although he does have some scratches. His shoe does not fit because there is so much swelling. He denies numbness or tingling. He tries to elevate this not go down. He has no abdominal pain no chest pain no shortness of breath. Related Data Home Medications Medication Instructions Recorded Confirmed atorvastatin [Lipitor] 10 mg PO DAILY #0 11/12/16 09/16/19 benazepril-hydrochlorothiazide 1 tab PO DAILY #0 11/12/16 09/16/19 lansoprazole [Prevacid] 15 mg PO DAILY #0 11/12/16 09/16/19 omega 7-uju-trt-fish oil [Fish Oil] 1,000 mg PO DAILY #0 03/29/17 09/16/19 multivitamin 1 tab PO DAILY 01/03/19 09/16/19 fluocinonide 1 applic TOPICAL DIRECTED 08/10/19 09/16/19 Previous Rx's Medication Instructions Recorded doxycycline hyclate 100 mg PO BID #14 cap 09/16/19 furosemide [Lasix] 20 mg PO DAILY #5 tab 09/16/19 Allergies Allergy/AdvReac Type Severity Reaction Status Date / Time ampicillin [AMPICILLIN] Allergy Unknown Verified 09/16/19 13:16 ceftriaxone [From ROCEPHIN] Allergy Unknown Verified 09/16/19 13:16 cephalexin [CEPHALEXIN] Allergy Unknown Verified 09/16/19 13:16 erythromycin base Allergy Unknown Verified 09/16/19 13:16 [ERYTHROMYCIN BASE] levofloxacin [From LEVAQUIN] Allergy Unknown HALLUCINATI Verified 09/16/19 13:16 ON Penicillins [PENICILLINS] Allergy Unknown Verified 09/16/19 13:16 Review of Systems Review of Systems ROS Unobtainable: All systems reviewed & are unremarkable except as noted in HPI and below Constitutional Constitutional: Denies chills, Denies fever(s), Denies lethargy and Denies weakness Eyes Eyes: Denies change in vision, Denies eye discharge, Denies irritation and Denies loss of vision ENT Ears, Nose, Mouth, and Throat: Denies change in voice, Denies neck pain and Denies sore throat Cardiovascular Cardiovascular: Denies chest pain, Denies irregular heart rhythm, Denies lightheadedness, Denies palpitations, Denies dyspnea, Denies dyspnea on exertion and Denies orthopnea Respiratory Respiratory: Denies cough, Denies dyspnea, Denies dyspnea on exertion and Denies wheezing Gastrointestinal Gastrointestinal: Denies abdominal pain, Denies change in bowel habits, Denies diarrhea, Denies nausea and Denies vomiting Musculoskeletal Musculoskeletal: Reports as per HPI and Denies neck pain Integumentary/Breasts Skin/Breast: Denies pruritus, Denies erythema, Denies rash and Denies wounds Neurologic Neurologic: Denies loss of vision and Denies weakness Endocrine Endocrine: Denies palpitations Allergic/Immunologic Allergic/Immunologic: Denies wheezing Patient History Social History Smoking Status: Never smoker alcohol intake frequency: 0-2 drinks per day Alcohol type: hard liquor Substance Use Type: does not use Exam Initial Vital Signs Initial Vital Signs: Vital Signs Temperature 97.9 F 09/16/19 13:09 Pulse Rate 93 H 09/16/19 13:09 Respiratory Rate 16 09/16/19 13:09 Blood Pressure 137/90 09/16/19 13:09 Pulse Oximetry 96 09/16/19 13:09 GENERAL: Alert pleasant well-appearing male appears younger than stated age and in no acute distress. HEENT: Head atraumatic,EOMI, pupils reactive, face symmetric, CARDIOVASCULAR: Regular rate and rhythm without murmurs, rubs or gallops. RESPIRATORY: Breath sounds equal bilaterally, no wheezes rales or rhonchi. ABDOMEN: Soft, nontender. Normoactive bowel sounds all 4 quadrants. No guarding or rebound. EXTREMITIES: Normal range of motion, no clubbing or edema. Neurovascularly intact Left leg significant edema minimal erythema his medial ankle does look like there is contusion but he has no gross bony deformity his foot is warm positive pedal pulse. He does have some superficial scratches on his lower leg but no streaking. NEUROLOGICAL: Alert and oriented x4.Normal gait and speech. SKIN: Superficial scratches left lower leg no surrounding erythema no gross pus Course Orders Ordered: ED Orders 09/16/19 13:18 XR chest 1V Stat EKG-12 Lead Stat 09/16/19 13:36 BNP [B Type Natriuretic Peptide] Stat Complete Blood Count AUTO DIFF Stat Comprehensive Metabolic Panel Stat Lipase Stat Partial Thromboplastin Time Stat Procalcitonin Stat Prothrombin Time INR Stat Troponin & CK Cardiac Panel Stat 09/16/19 14:14 US periph venous low extrem lt Stat 09/16/19 14:24 CT abdomen pelvis w con Stat Vital Signs Vital signs: Vital Signs - 8 hr 09/16/19 13:09 09/16/19 13:40 09/16/19 14:30 Temperature 97.9 F Pulse Rate 93 H 71 80 Pulse Rate [Left Dorsalis Pedis] 70 Pulse Rate [Right Dorsalis Pedis] 71 Respiratory Rate 16 18 18 Blood Pressure 137/90 Blood Pressure [Left Arm] 138/73 142/72 H Pulse Oximetry 96 99 98 09/16/19 16:00 Temperature Pulse Rate 91 H Pulse Rate [Left Dorsalis Pedis] Pulse Rate [Right Dorsalis Pedis] Respiratory Rate 20 Blood Pressure 134/68 Blood Pressure [Left Arm] Pulse Oximetry 98 MDM - Extremity (Nontraumatic) Lab Data Attestation: I reviewed the patient's lab results. Result diagrams: 09/16/19 13:36 09/16/19 13:36 Labs: Lab Results 09/16/19 09/16/19 09/16/19 Range/Units 13:36 13:36 13:36 WBC 7.1 (4.5-11.0) X10^3/uL RBC 2.94 L (4.5-5.9) X10^6/uL Hgb 10.6 L (13.5-17.5) g/dL Hct 29.9 L (41-53) % MCV 101.8 H (80-100) fL MCH 35.9 H (26-34) PG MCHC 35.3 (30-36) % RDW 13.5 (11.6-14.8) % Plt Count 201 (150-400) X10^3/uL Neut % (Auto) 69.2 (50-75) % Lymph % (Auto) 12.2 L (25-40) % [place] % (Auto) 16.3 H (3-14) % Eos % (Auto) 1.8 L (2-4) % Baso % (Auto) 0.5 (0-2) % Neut # (Auto) 4900 (7434-3765) /uL Lymph # (Auto) 900 L (6741-9726) /uL [place] # (Auto) 1200 H (0-900) /uL Eos # (Auto) 100 (0-450) /uL Baso # (Auto) 0 (0-100) /uL PT 11.1 (10.1-12.7) SECONDS INR 1.0 (0.9-1.3) APTT 34 (26.4-36.2) SECONDS Sodium 135 L (137-145) mmol/L Potassium 3.8 (3.4-5.1) mmol/L Chloride 95 L (98-107) mmol/L Carbon Dioxide 29 (22-32) mmol/L BUN 24 H (9-20) mg/dL Creatinine 1.20 (0.66-1.25) mg/dL Estimated GFR 59.2 L (>60) mL/min BUN/Creatinine Ratio 20.0 (6-22) Glucose 88 (80-110) mg/dL Calcium 9.4 (8.4-10.2) mg/dL Total Bilirubin 0.6 (0.2-1.3) mg/dL AST 42 (17-59) IU/L ALT 20 (<50) IU/L Alkaline Phosphatase 67 (38-126) U/L Total Creatine Kinase 102 (55-170) U/L CK-MB (CK-2) 1.54 (<2.37) ng/mL CK-MB (CK-2) Rel Index 1.5 (1.5-5.0) % Troponin I 0.024 (0.01-0.034) ng/mL B-Natriuretic Peptide (<100) Total Protein 6.7 (6.3-8.2) g/dL Albumin 4.1 (3.5-5.0) g/dL Globulin 2.6 (1.7-4.1) g/dL Albumin/Globulin Ratio 1.6 (1.0-2.8) Lipase 273 (23-300) U/L Procalcitonin (<0.5) ng/mL 09/16/19 09/16/19 Range/Units 13:36 13:36 WBC (4.5-11.0) X10^3/uL RBC (4.5-5.9) X10^6/uL Hgb (13.5-17.5) g/dL Hct (41-53) % MCV (80-100) fL MCH (26-34) PG MCHC (30-36) % RDW (11.6-14.8) % Plt Count (150-400) X10^3/uL Neut % (Auto) (50-75) % Lymph % (Auto) (25-40) % [place] % (Auto) (3-14) % Eos % (Auto) (2-4) % Baso % (Auto) (0-2) % Neut # (Auto) (3972-6949) /uL Lymph # (Auto) (9789-4140) /uL [place] # (Auto) (0-900) /uL Eos # (Auto) (0-450) /uL Baso # (Auto) (0-100) /uL PT (10.1-12.7) SECONDS INR (0.9-1.3) APTT (26.4-36.2) SECONDS Sodium (137-145) mmol/L Potassium (3.4-5.1) mmol/L Chloride (98-107) mmol/L Carbon Dioxide (22-32) mmol/L BUN (9-20) mg/dL Creatinine (0.66-1.25) mg/dL Estimated GFR (>60) mL/min BUN/Creatinine Ratio (6-22) Glucose (80-110) mg/dL Calcium (8.4-10.2) mg/dL Total Bilirubin (0.2-1.3) mg/dL AST (17-59) IU/L ALT (<50) IU/L Alkaline Phosphatase (38-126) U/L Total Creatine Kinase (55-170) U/L CK-MB (CK-2) (<2.37) ng/mL CK-MB (CK-2) Rel Index (1.5-5.0) % Troponin I (0.01-0.034) ng/mL B-Natriuretic Peptide < 100 (<100) Total Protein (6.3-8.2) g/dL Albumin (3.5-5.0) g/dL Globulin (1.7-4.1) g/dL Albumin/Globulin Ratio (1.0-2.8) Lipase (23-300) U/L Procalcitonin < 0.05 (<0.5) ng/mL Imaging Data Chest x-ray: Radiologist's impression: PROCEDURE: XR CHEST 1V INDICATIONS: chest pain TECHNIQUE: One view of the chest was acquired. COMPARISON: [facility], CHEST 1 VIEW, 11/12/2016, 18:47. FINDINGS: Surgical changes and devices: None. Lungs and pleura: Lungs are clear. No pleural effusions or pneumothorax. Mediastinum: Mediastinal contours appear normal. Heart size is normal. Bones and chest wall: No suspicious bony lesions. Overlying soft tissues appear unremarkable. IMPRESSION: No acute disease Dictated by: Akhil Rizo M.D. on 09/16/2019 at 13:48 Approved by: Akhil Rizo M.D. on 09/16/2019 at 13:49 Venous US: Radiologist's impression: PROCEDURE: US PERIP VENOUS LOW EXTREM LT INDICATIONS: WORSENING EDEMA TECHNIQUE: Real-time imaging, as well as color and pulse Doppler interrogation, were performed of the lower extremity deep veins from the inguinal ligament to the popliteal fossa. COMPARISON: [facility], US PERIP VENOUS LOW EXTREM LT, 09/12/2019, 13:23. FINDINGS: The common femoral, femoral and popliteal veins are normally compressible, and free of intraluminal thrombus. Color and pulse Doppler demonstrate normal phasic intraluminal flow. There is normal augmentation response to distal compression maneuver. IMPRESSION: No evidence of deep vein thrombosis of the left lower extremity. Dictated by: Robel Torres M.D. on 09/16/2019 at 14:00 CT scan - abdomen: Radiologist's impression: PROCEDURE: CT ABDOMEN PELVIS W CON INDICATIONS: SEVERE left leg swelling ?obstruction/mass TECHNIQUE: After the administration of intravenous contrast, 5 mm thick sections acquired from the diaphragm to the symphysis. 5 mm coronal and sagittal reformats were acquired. For radiation dose reduction, the following was used: automated exposure control, adjustment of mA and/or kV according to patient size. COMPARISON: [facility], [place], US PERIPH VENOUS LOW EXTREM LT, 09/16/2019, 14:37. FINDINGS: Image quality: Excellent. ABDOMEN: Lung bases: Lung bases are clear. Heart size is normal. Moderate coronary artery calcification. Tiny hiatal hernia. Solid organs: There is a 9 mm low density nodule in the left hepatic lobe, consistent with a cyst. Hepatic steatosis. Liver is normal in size and enhancement. Gallbladder is normal. Biliary system is non dilated. Pancreas enhances normally. Spleen is normal in size and enhancement. There is a 2 cm splenule. No adrenal nodules. Kidneys demonstrate normal size and enhancement, without hydronephrosis. A cortical scar is seen in the inferior pole of the right kidney. Peritoneum and bowel: Bowel loops demonstrate normal wall thickness and caliber. There are innumerable colonic diverticula. There is mild sigmoid colon thickening suggesting mild diverticulitis. No free fluid or air. Nodes and vessels: No retroperitoneal or mesenteric adenopathy by size criteria. Aorta and inferior vena cava are normal in size. Moderate atherosclerosis. Miscellaneous: There is a small fat-containing umbilical hernia. PELVIS: Genitourinary: Bladder wall thickness is normal. Miscellaneous: No inguinal adenopathy. Small right fat-containing inguinal hernia is noted. Bones: No suspicious bony lesions. No vertebral body compression fractures. Severe degenerative changes in lumbar spine. IMPRESSION: 1. No CT findings to explain left leg swelling. Patent femoral vein and IVC. No hepatic mass or enlarged lymph nodes. 2. Diverticulosis. There is mild sigmoid thickening suggesting mild diverticulitis. Recommend clinical correlation. 3. Hepatic steatosis. 4. Small fat containing umbilical hernia and right inguinal hernia. The result was discussed with Dr. Nava. Dictated by: Ame Joseph M.D. on 09/16/2019 at 15:42 ECG Data Attestation EKG: I personally reviewed and interpreted this ECG as follows: Prior ECG tracings: not available for review Interpretation: Normal sinus rhythm rate 65 p.r. interval 162 QRS 100 QTC is [address] elevations depressions or T-wave inversions no priors to compare. [facility] Narrative Medical decision making narrative: Patient has significantly elevated you know lateral lower extremity edema. His it is minimally erythematous he has no shortness of breath no abdominal pain. DVT is again negative. The question blockage of venous return in the abdomen will get abdominal CT. CT is negative. He has is no shortness of breath chest x-ray and BNP are negative. He has no strain on his heart. It would be abnormal to have unilateral swelling with CHF. At this time will put him on his some antibiotics for possible cellulitis is and Lasix. I strongly recommend compression socks and elevation. Discharge Plan Departure Patient Disposition: Home Clinical Impression: Peripheral edema Discharge Date/Time: 09/16/19 16:00 Instructions: DI for Peripheral Edema, Unilateral Activity Restrictions/Additional Instructions: *You have been diagnosed with peripheral edema *What to do: At this time no real cause of edema, there is no blood clot. Recommend wearing compression socks elevating legs. *Continue to take medications as directed Lasix 20 mg once a day for 5 days--> SENT TO [facility] IN [place] Doxycycline 100 mg twice a day A DAY FOR 1 WEEK *Follow up with your primary care provider in 2-3 days *Return to ER if you should have increased swelling, shortness of breath, chest pain or any new, worsening or concerning symptoms Prescriptions: New furosemide [Lasix] 20 mg tablet 20 mg PO DAILY Qty: 5 RF: 0 doxycycline hyclate 100 mg capsule 100 mg PO BID Qty: 14 RF: 0 No Action benazepril-hydrochlorothiazide 20 MG/25 MG tablet 1 tab PO DAILY Qty: 0 RF: 0 atorvastatin [Lipitor] 10 MG tablet 10 mg PO DAILY Qty: 0 RF: 0 lansoprazole [Prevacid] 15 MG capsule,delayed release(DR/EC) 15 mg PO DAILY Qty: 0 RF: 0 omega 3-ipv-czo-fish oil [Fish Oil] 1,000 MG capsule 1,000 mg PO DAILY Qty: 0 RF: 0 fluocinonide 0.05 % solution 1 applic TOPICAL DIRECTED RF: 0 multivitamin Tablet 1 tab PO DAILY RF: 0
--- NOTE | 2019-09-16 14:14 | DI.US.S_ITS ---
PROCEDURE: US PERIP VENOUS LOW EXTREM LT INDICATIONS: WORSENING EDEMA TECHNIQUE: Real-time imaging, as well as color and pulse Doppler interrogation, were performed of the lower extremity deep veins from the inguinal ligament to the popliteal fossa. COMPARISON: [facility], [facility] VENOUS LOW EXTREM LT, 09/12/2019, 13:23. FINDINGS: The common femoral, femoral and popliteal veins are normally compressible, and free of intraluminal thrombus. Color and pulse Doppler demonstrate normal phasic intraluminal flow. There is normal augmentation response to distal compression maneuver. IMPRESSION: No evidence of deep vein thrombosis of the left lower extremity. Dictated by: Robel Torres M.D. on 09/16/2019 at 14:00 Approved by: Robel Torres M.D. on 09/16/2019 at 14:02
[2019-09-16 14:15] LABS: Troponin I 0.024 ng/mL (0.01-0.034)
[2019-09-16 14:19] LABS: CKMB % Relative Index 1.5 % (1.5-5.0); Creatine Kinase MB 1.54 ng/mL (<2.37)
--- NOTE | 2019-09-16 14:24 | DI.CT.S_ITS ---
PROCEDURE: CT ABDOMEN PELVIS W CON INDICATIONS: SEVERE left leg swelling ?obstruction/mass TECHNIQUE: After the administration of intravenous contrast, 5 mm thick sections acquired from the diaphragm to the symphysis. 5 mm coronal and sagittal reformats were acquired. For radiation dose reduction, the following was used: automated exposure control, adjustment of mA and/or kV according to patient size. COMPARISON: [facility], , US PERIPH VENOUS LOW EXTREM LT, 09/16/2019, 14:37. FINDINGS: Image quality: Excellent. ABDOMEN: Lung bases: Lung bases are clear. Heart size is normal. Moderate coronary artery calcification. Tiny hiatal hernia. Solid organs: There is a 9 mm low density nodule in the left hepatic lobe, consistent with a cyst. Hepatic steatosis. Liver is normal in size and enhancement. Gallbladder is normal. Biliary system is non dilated. Pancreas enhances normally. Spleen is normal in size and enhancement. There is a 2 cm splenule. No adrenal nodules. Kidneys demonstrate normal size and enhancement, without hydronephrosis. A cortical scar is seen in the inferior pole of the right kidney. Peritoneum and bowel: Bowel loops demonstrate normal wall thickness and caliber. There are innumerable colonic diverticula. There is mild sigmoid colon thickening suggesting mild diverticulitis. No free fluid or air. Nodes and vessels: No retroperitoneal or mesenteric adenopathy by size criteria. Aorta and inferior vena cava are normal in size. Moderate atherosclerosis. Miscellaneous: There is a small fat-containing umbilical hernia. PELVIS: Genitourinary: Bladder wall thickness is normal. Miscellaneous: No inguinal adenopathy. Small right fat-containing inguinal hernia is noted. Bones: No suspicious bony lesions. No vertebral body compression fractures. Severe degenerative changes in lumbar spine. IMPRESSION: 1. No CT findings to explain left leg swelling. Patent femoral vein and IVC. No hepatic mass or enlarged lymph nodes. 2. Diverticulosis. There is mild sigmoid thickening suggesting mild diverticulitis. Recommend clinical correlation. 3. Hepatic steatosis. 4. Small fat containing umbilical hernia and right inguinal hernia. The result was discussed with Dr. Nava. Dictated by: Ame Joseph M.D. on 09/16/2019 at 15:42 Approved by: Ame Joseph M.D. on 09/16/2019 at 15:51
[2019-09-16 14:30] VITALS: BP 142/72; PULSE 80; RESP 18; O2SAT 98
[2019-09-16 15:40] LABS: Procalcitonin < 0.05 ng/mL (<0.5)
[2019-09-16 16:00] VITALS: BP 134/68; PULSE 91; RESP 20; O2SAT 98
== END 2019-09-16 16:00 | disposition home or self-care (01) ==
PROVIDERS: Emergency Provider Emergency Medicine
DX: R60.0 Localized edema (principal); R07.9 Chest pain, unspecified; R79.89 Other specified abnormal findings of blood chemistry
CPT/HCPCS: 36415; 71045; 74177; 80053; 82550; 82553; 83690; 83880; 84145; 84484; 85025; 85610; 85730; 93005; 93971; 99282; 99285

== ENCOUNTER 2019-10-19 13:53 | Emergency (ER) | payer MEDICARE, OTHER, SELFPAY ==
[2019-10-19 13:57] VITALS: BP 135/65; PULSE 87; RESP 22; TEMP 36.7; O2SAT 99
--- NOTE | 2019-10-19 16:17 | DI.RAD.S_ITS ---
PROCEDURE: XR ANKLE LT MIN 3V INDICATIONS: L foot and ankle pain w edema, no trauma to recall TECHNIQUE: 3 views of the ankle were acquired. COMPARISON: None. FINDINGS: Bones: No fractures or dislocations. Ankle mortise is normally aligned. No suspicious bony lesions. Soft tissues: No tibiotalar joint effusion. Achilles tendon appears normal. Bimalleolar soft tissue swelling. IMPRESSION: Bimalleolar soft tissue swelling without underlying fracture. Dictated by: Rosanna Schneider M.D. on 10/19/2019 at 17:46 Approved by: Rosanna Schneider M.D. on 10/19/2019 at 17:47
--- NOTE | 2019-10-19 16:17 | DI.RAD.S_ITS ---
PROCEDURE: XR FOOT LT MIN 3V INDICATIONS: L foot and ankle pain w edema, no trauma to recall TECHNIQUE: 3 views of the foot were acquired. COMPARISON: None. FINDINGS: Bones: No fractures or dislocations. Joint space narrowing, marginal spurring, no subcortical cystic change at the first metatarsal phalangeal joint. A partially fused os trigonum. No suspicious bony lesions. Soft tissues: No tibiotalar joint effusion. Achilles tendon appears normal. Moderate dorsal forefoot soft tissue swelling. No subcutaneous gas or foreign body. IMPRESSION: 1. Forefoot soft tissue swelling without underlying fracture or foreign body. 2. Degenerative change at the first MTP joint. Dictated by: Rosanna Schneider M.D. on 10/19/2019 at 17:44 Approved by: Rosanna Schneider M.D. on 10/19/2019 at 17:46
[2019-10-19 16:27] VITALS: BP 159/63; PULSE 88; RESP 20; O2SAT 100
[2019-10-19] MEDS: HYDROCODONE/ACET 5/325 TABLET 1 TAB PO ×2 (16:28→19:24)
[2019-10-19 16:30] VITALS: BP 151/65; PULSE 85; O2SAT 99
[2019-10-19 17:30] VITALS: BP 151/63; PULSE 88; RESP 17; O2SAT 98
[2019-10-19 18:30] VITALS: BP 154/64; PULSE 94; RESP 17; O2SAT 98
--- NOTE | 2019-10-19 18:36 | PC.NURSE ---
Woman family member out at nurse's station requesting to see doctor. She is concerned about patient's right foot swollen. BIRDIE Echols aware.
--- NOTE | 2019-10-19 18:37 | PC.NURSE ---
[id number] Patient's female family member is out at nurse's station demanding to see the doctor. BIRDIE puente.
--- NOTE | 2019-10-19 18:40 | PC.NURSE ---
Woman family memeber out at nurse's station again requesting to speak with . We again informed her that the Nurse Practitioner is aware and will be in to see the patient as soon as possible.
--- NOTE | 2019-10-19 19:09 | PC.NURSE ---
Patient's sister in law is asking for more vicodin at this time prior to DC.
[2019-10-19] MEDS: IBUPROFEN 400 MG TABLET PO (19:25)
[2019-10-19 19:34] VITALS: BP 139/79; PULSE 72; RESP 17; O2SAT 99
--- NOTE | 2019-10-20 00:12 | ED_ITS ---
HPI - Extremity Injury (Lower) <BIRDIE Aviles - Last Filed: 10/20/19 00:35> General Chief Complaint: Extremity Injury, Lower Stated Complaint: cant walk/move, L knee injury, R foot gout Time Seen by Provider: 10/19/19 15:19 Source: patient Mode of arrival: Wheelchair Limitations: no limitations History of Present Illness HPI Narrative: This is a 74-year-old male, nonsmoker, who presents to ED with right lateral ankle and dorsal aspect of midfoot pain. Patient reports he has history of gouty pain is located in right 1st toe and MTP joint. Patient denies trauma or injury to affected site. Patient had fall about a month ago and has been having left leg swelling and discomfort. Patient was seen couple of times in ED during last month for an evaluation with ultrasound, x-ray test, CT test for this. Patient reports left leg pain and swelling is finally improving and has an appointment with physical therapist on Thursday. Patient had taken [place] at 11:00 a.m. prior coming into ED for discomfort. Patient denies fever/chills, nausea or vomiting, redness or streak on R lower leg. Patient reports pain is severe and has difficult time bearing his weight, patient is concerned since his primary caregiver to his disabled . Related Data Home Medications Medication Instructions Recorded Confirmed atorvastatin [Lipitor] 10 mg PO DAILY #0 11/12/16 10/19/19 benazepril-hydrochlorothiazide 1 tab PO DAILY #0 11/12/16 10/19/19 lansoprazole [Prevacid] 15 mg PO DAILY #0 11/12/16 10/19/19 omega 5-mho-lzq-fish oil [Fish Oil] 1,000 mg PO DAILY #0 03/29/17 10/19/19 multivitamin 1 tab PO DAILY 01/03/19 10/19/19 fluocinonide 1 applic TOPICAL DIRECTED 08/10/19 10/19/19 Previous Rx's Medication Instructions Recorded hydrocodone-acetaminophen [[place]] 1 tab PO Q6H PRN #14 tab 10/19/19 Allergies Allergy/AdvReac Type Severity Reaction Status Date / Time ampicillin [AMPICILLIN] Allergy Unknown Verified 09/16/19 13:16 ceftriaxone [From ROCEPHIN] Allergy Unknown Verified 09/16/19 13:16 cephalexin [CEPHALEXIN] Allergy Unknown Verified 09/16/19 13:16 erythromycin base Allergy Unknown Verified 09/16/19 13:16 [ERYTHROMYCIN BASE] levofloxacin [From LEVAQUIN] Allergy Unknown HALLUCINATI Verified 09/16/19 13:16 ON Penicillins [PENICILLINS] Allergy Unknown Verified 09/16/19 13:16 Review of Systems <BIRDIE Aviles - Last Filed: 10/20/19 00:35> Review of Systems Narrative: General: Denies fever, chills, fatigue, malaise, sweats. HEENT: Denies sinus pain, ear pain, sore throat, difficulty swallowing, dizziness. Respiratory: Denies dyspnea, cough, wheezing, hemoptysis, sputum. Cardiovascular: Denies chest pain, palpitations, orthopnea, edema. Gastrointestinal: Denies nausea, vomiting, abdominal pain, diarrhea, constipation, melena. : Denies dysuria, frequency, incontinence, hematuria, urinary retention. Musculoskeletal: See HPI Skin: Denies rash, skin lesions, or other. Neurologic: Denies weakness, headache, numbness, change in speech, confusion, seizures, incoordination. Psychiatric: No concerning psychosocial issues. 12-point review of systems is negative except for those stated above. Patient History <BIRDIE Aviles - Last Filed: 10/20/19 00:35> Surgical History Hx of hand surgery (Acute) Social History Smoking Status: Never smoker Smoking Status: Never smoker alcohol intake frequency: 0-2 drinks per day Alcohol type: hard liquor Substance Use Type: does not use Exam <BIRDIE Aviles - Last Filed: 10/20/19 00:35> Narrative Exam Narrative: General appearance: well developed, well nourished, in no acute distress. Head: normocephalic, atraumatic, no scalp lesions, non-tender. ENT: Bilateral auditory canals and tympanic membranes clear. Hearing grossly intact. Nose without bleeding, purulent discharge, septal hematoma or dev iation. Turbinate without erythema or swelling. Facial sinuses nontender to palpate. Mucous membrane moist, no mucosal lesion. Throat without erythema, tonsillar hypertrophy or exudate. Uvula in midline, airway patent. Neck/Thyroid: neck supple, full range of motion, no visible masses or meningeal signs. No JVD, non-tender without lymphadenopathy. Skin: no suspicious rashes, lesions over visible areas. Warm and dry and appropriate color for ethnicity. Heart: no clubbing, no cyanosis, no edema. S1 and S2 normal. RRR w/o murmurs, clicks, or bruits. Lungs: Breathing even and unlabored. No stridor. No accessory muscles used. Able to speak in full sentences. Chest: normal shape and expansion. Abdomen: non-obese, non-distended. Neurologic: alert and oriented. Cognitive exam, HEALTHC[facility] and PNS grossly intact on informal exam. Psych: good eye contact, normal affect. Initial Vital Signs Initial Vital Signs: Vital Signs Temperature 98.1 F 10/19/19 13:57 Pulse Rate 87 10/19/19 13:57 Respiratory Rate 22 10/19/19 13:57 Blood Pressure 135/65 10/19/19 13:57 Pulse Oximetry 99 10/19/19 13:57 Extrem Right lower extremity: knee Details: normal to inspection and normal ROM; no tenderness, lower leg Details: normal to inspection and non-pitting edema; no erythema and no tenderness, ankle Details: tenderness Location: of the lateral malleolus, swelling Details: diffusely and abnormal ROM Details: pain with active ROM and pain with passive ROM; no unusual warmth, no ecchymosis and no crepitus and foot Details: normal capillary refill, abnormal to inspection (1st toe and MPT erythema but no tender to palpation or warmth), tenderness (Lateral midfoot and ankle), toes with normal ROM, edema Location: of the dorsal foot and diffusely, vascular exam Details: dorsalis pedis pulse present, tendon exam Details: active flexion normal and active extension normal and motor-sensory exam Details: light-touch normal; no unusual warmth, no abrasion, no laceration, no ecchymosis and no crepitus Left lower extremity: normal to inspection and edema <Charu Houser DO - Last Filed: 10/20/19 07:30> Initial Vital Signs Initial Vital Signs: Vital Signs Temperature 98.1 F 10/19/19 13:57 Pulse Rate 87 10/19/19 13:57 Respiratory Rate 22 10/19/19 13:57 Blood Pressure 135/65 10/19/19 13:57 Pulse Oximetry 99 10/19/19 13:57 Procedures <BIRDIE Aviles - Last Filed: 10/20/19 00:35> Orthopedic Splinting/Casting Injury #1: Side: right Lower Extremity Injury Location: ankle and foot Lower Extremity Immobilizer: Ramirez wrap Post splinting neuro exam: intact Post splinting vascular exam: intact Placed by: Nursing Additional Comments: Patient reports will use his 's walker at home and declined crutches, ,walker or cane dispense Scores <BIRDIE Aviles - Last Filed: 10/20/19 00:35> GCS Satinder coma scale eye opening: Spontaneous Satinder coma scale verbal response: Orientated [place] coma scale motor response: Obey commands Satinder coma scale total score: 15 Course <BIRDIE Aviles - Last Filed: 10/20/19 00:35> Orders Ordered: Discontinued Medications Hydrocodone Bitart/Acetaminophen ([place] 5/325) 1 tab PO NOW ONE Stop: 10/19/19 16:18 Last Admin: 10/19/19 16:28 Dose: 1 tab Documented by: SEDRICK Hydrocodone Bitart/Acetaminophen ([place] 5/325) 1 tab PO NOW ONE Stop: 10/19/19 19:08 Last Admin: 10/19/19 19:24 Dose: 1 tab Documented by: CARLA Ibuprofen (Advil) 400 mg PO NOW ONE Stop: 10/19/19 19:08 Last Admin: 10/19/19 19:25 Dose: 400 mg Documented by: CARLA Vital Signs Vital signs: Vital Signs - 8 hr 10/19/19 16:27 10/19/19 16:30 10/19/19 17:30 Pulse Rate 88 85 88 Respiratory Rate 20 17 Blood Pressure Blood Pressure [Left Arm] 151/65 H 151/63 H Blood Pressure [Right Arm] 159/63 H Pulse Oximetry 100 99 98 10/19/19 18:30 10/19/19 19:34 Pulse Rate 94 H 72 Respiratory Rate 17 17 Blood Pressure 139/79 Blood Pressure [Left Arm] 154/64 H Blood Pressure [Right Arm] Pulse Oximetry 98 99 <Charu Houser DO - Last Filed: 10/20/19 07:30> Orders Ordered: Discontinued Medications Hydrocodone Bitart/Acetaminophen ([place] 5/325) 1 tab PO NOW ONE Stop: 10/19/19 16:18 Last Admin: 10/19/19 16:28 Dose: 1 tab Documented by: SEDRICK Hydrocodone Bitart/Acetaminophen ([place] 5/325) 1 tab PO NOW ONE Stop: 10/19/19 19:08 Last Admin: 10/19/19 19:24 Dose: 1 tab Documented by: CARLA Ibuprofen (Advil) 400 mg PO NOW ONE Stop: 10/19/19 19:08 Last Admin: 10/19/19 19:25 Dose: 400 mg Documented by: MMCFARL Vital Signs Vital signs: Vital Signs - 8 hr 10/19/19 16:27 10/19/19 16:30 10/19/19 17:30 Pulse Rate 88 85 88 Respiratory Rate 20 17 Blood Pressure Blood Pressure [Left Arm] 151/65 H 151/63 H Blood Pressure [Right Arm] 159/63 H Pulse Oximetry 100 99 98 10/19/19 18:30 10/19/19 19:34 Pulse Rate 94 H 72 Respiratory Rate 17 17 Blood Pressure 139/79 Blood Pressure [Left Arm] 154/64 H Blood Pressure [Right Arm] Pulse Oximetry 98 99 MDM - Extremity Injury (Lower) <BIRDIE Aviles - Last Filed: 10/20/19 00:35> Differential Diagnosis Differential diagnosis: Likely ankle sprain and strain, ankle fracture and other (Gout, DVT) Medical Records Attestation: I reviewed the patient's medical records. Imaging Data XR-Ankle LT: Radiologist's impression: [address] [id number] XRay Report Signed Patient: Matthew Ochoa EMR#: [id number] : 5Acct:[id number] Age/Sex: 74 / MDate of Service: 10/19/19 Loc: ED Accession Number: [id number] Procedure: XR ankle LT min 3V Ordering Provider: Onesimo Almazan PROCEDURE: XR ANKLE LT MIN 3V INDICATIONS: L foot and ankle pain w edema, no trauma to recall TECHNIQUE: 3 views of the ankle were acquired. COMPARISON: None. FINDINGS: Bones: No fractures or dislocations. Ankle mortise is normally aligned. No suspicious bony lesions. Soft tissues: No tibiotalar joint effusion. Achilles tendon appears normal. Bimalleolar soft tissue swelling. IMPRESSION: Bimalleolar soft tissue swelling without underlying fracture. Dictated by: Rosanna Schneider M.D. on 10/19/2019 at 17:46 Approved by: Rosanna Schneider M.D. on 10/19/2019 at 17:47 XR- Foot LT: Radiologist's impression: [address] [address] XRay Report Signed Patient: Matthew Ochoa EMR#: [id number] : 5Acct:[id number] Age/Sex: 74 / MDate of Service: 10/19/19 Loc: ED Accession Number: [id number] Procedure: XR foot LT min 3V Ordering Provider: Onesimo Almazan PROCEDURE: XR FOOT LT MIN 3V INDICATIONS: L foot and ankle pain w edema, no trauma to recall TECHNIQUE: 3 views of the foot were acquired. COMPARISON: None. FINDINGS: Bones: No fractures or dislocations. Joint space narrowing, marginal spurring, no subcortical cystic change at the first metatarsal phalangeal joint. A partially fused os trigonum. No suspicious bony lesions. Soft tissues: No tibiotalar joint effusion. Achilles tendon appears normal. Moderate dorsal forefoot soft tissue swelling. No subcutaneous gas or foreign body. IMPRESSION: 1. Forefoot soft tissue swelling without underlying fracture or foreign body. 2. Degenerative change at the first MTP joint. Dictated by: Rosanna Schneider M.D. on 10/19/2019 at 17:44 Approved by: Rosanna Schneider M.D. on 10/19/2019 at 17:46 [facility] Narrative Medical decision making narrative: This is a 74-year-old gentleman who presents to ED with nontraumatic right lateral mid foot and lateral ankle discomfort with swelling. Patient denies constitutional symptoms. Patient had injured left leg about a month ago and had evaluation in ED with ultrasound, x-ray, CT test, and blood test in the past. Patient reports finally left leg discomfort and swelling improved. X-ray test does not show acute findings such as fracture or dislocation on right foot or ankle. Patient has history of gout but usually in right 1st toe and MTP joints. Physical exam is not consistent with gout on right ankle. Considered DVT but there was no swelling, pain, redness to right calf. There is no warmth, redness to affected side. Patient has generalized swelling on right foot, ankle, lower extremity and neurovascularly intact in distal area. Given patient's recent injury to the other leg, the patient probably has been favoring R leg for weight-bearing and ambulation which might've caused R foot/ankle pain. Patient advised to use rest, elevation, compression on affected leg and applied Ramirez wrap. Patient declined crutches, walker or cane stating he will use his 's walker at home. Patient discharged to home with [place] and narcotic medication precautions were discussed with the patient. Return precautions were discussed with the patient and verbalized understanding and agrees with treatment plan. Discharge Plan Departure Patient Disposition: Home Clinical Impression: Pain in joint involving right ankle and foot Discharge Date/Time: 10/19/19 19:36 Instructions: DI for Ankle Pain Activity Restrictions/Additional Instructions: You have been diagnosed with [right ankle and foot pain. X-ray test shows no acute findings such as fractures or dislocation. There was soft tissue swelling in bilateral ankle and foot. Physical exam is not consistent with infection today. What to do: *Take your medications as directed. [place] is a narcotic pain medication and please use sparingly. This medication may cause drowsiness so please take precautions such as not drinking alcohol, driving, operating heavy equipments. This can cause constipation as well. You can take Motrin/ibuprofen 400-600 mg 3 times a day as needed for discomfort. If pain is not severe, you can take Tylenol 650 mg 3 to 4 times a day as needed for pain. *Follow up with your primary care provider in 2-3 days, call for an appointment. Let them know you were seen in the ED and that we asked you to be seen in follow up. *Return to ED if you have any new, worsening, or concerning symptoms, such as [chest pain, breathing difficulty, unable to tolerate fluids, worsening pain, tingling/numbness/weakness to affected leg. Please use ?RICE? therapy such as Rest, Ice, Compression/Spliint/Acewrap, and Elevation above the chest level. ]. Prescriptions: New hydrocodone-acetaminophen [[place]] 5-325 mg tablet 1 tab PO Q6H PRN (Reason: pain) Qty: 14 RF: 0 No Action benazepril-hydrochlorothiazide 20 MG/25 MG tablet 1 tab PO DAILY Qty: 0 RF: 0 atorvastatin [Lipitor] 10 MG tablet 10 mg PO DAILY Qty: 0 RF: 0 lansoprazole [Prevacid] 15 MG capsule,delayed release(DR/EC) 15 mg PO DAILY Qty: 0 RF: 0 omega 4-ugr-jwr-fish oil [Fish Oil] 1,000 MG capsule 1,000 mg PO DAILY Qty: 0 RF: 0 fluocinonide 0.05 % solution 1 applic TOPICAL DIRECTED RF: 0 multivitamin Tablet 1 tab PO DAILY RF: 0
== END 2019-10-19 19:36 | disposition home or self-care (01) ==
PROVIDERS: Emergency Provider Nurse Practitioner Family
DX: M25.571 Pain in right ankle and joints of right foot (principal)
CPT/HCPCS: 73610; 73630; 99281; 99283

== ENCOUNTER → 2020-04-17 13:03 | Outpatient (CLI) | payer MEDICARE, OTHER, SELFPAY | PROVIDERS: PCP Internal Medicine; Referring Provider Internal Medicine; Visit Provider Internal Medicine | DX: N63.10 Unspecified lump in the right breast, unspecified quadrant (principal) ==

== ENCOUNTER → 2020-04-17 13:20 | Outpatient (CLI) | payer MEDICARE, OTHER, SELFPAY ==
--- NOTE | 2020-04-17 | DI.MG.S_ITS ---
MALE BILATERAL DIGITAL DIAGNOSTIC MAMMOGRAM 3D/2D: 04/17/2020 CLINICAL: Right breast lump. No prior exams were available for comparison. There is gynecomastia in both breasts that correlates with area of clinical concern, and palpable abnormality. Findings are more pronounced in the right breast. No significant masses, calcifications, or other findings are seen in either breast. IMPRESSION: There is no mammographic evidence of malignancy. Bilateral, right greater than left, gynecomastia. Recommend continued clinical surveillance. This exam was interpreted at Station ID: [id number]. NOTE: For mammograms, a report in lay terms will be sent to the patient. Approximately 15% of breast malignancies will not be visualized mammographically. In the management of a palpable breast mass, a negative mammogram must not discourage biopsy of a clinically suspicious lesion. Electronically Signed By: Oli Salinas M.D. aty/:04/17/2020 14:07:13 copy to: Jakub Valladares ACR BI-RADS Category 2: Benign Finding(s) 3342F
== END ==
PROVIDERS: PCP Internal Medicine; Referring Provider Internal Medicine; Visit Provider Internal Medicine
DX: R92.8 Other abnormal and inconclusive findings on diagnostic imaging of breast; N63.10 Unspecified lump in the right breast, unspecified quadrant; N62 Hypertrophy of breast
CPT/HCPCS: 77066; G0279

== ENCOUNTER → 2020-08-14 19:28 | Outpatient (ROUT) | payer MEDICARE, OTHER, SELFPAY ==
[2020-08-14 19:45] LABS: Add Manual Diff / Slide Review NO; Basophils Absolute Auto 100 /uL (0-100); Basophils Percent Auto 1.1 % (0-2); Eosinophils Absolute Auto 400 /uL (0-450); Eosinophils Percent Auto 6.6 % (2-4); Hematocrit 40.4 % (41-53); Hemoglobin 13.7 g/dL (13.5-17.5); Lymphocytes Absolute Auto 900 /uL (1100-4500); Lymphocytes Percent Auto 14.7 % (25-40); Mean Corpuscular HGB Conc 33.8 % (30-36); Mean Corpuscular Hemoglobin 33.7 PG (26-34); Mean Corpuscular Volume 99.7 fL (80-100); Monocytes Absolute Auto 900 /uL (0-900); Monocytes Percent Auto 14.3 % (3-14); Neutrophils Absolute Auto 4000 /uL (1500-7000); Neutrophils Percent Auto 63.3 % (50-75); Platelet Count 183 X10^3/uL (150-400); Red Blood Cell Count 4.05 X10^6/uL (4.5-5.9); Red Cell Distribution Width 13.9 % (11.6-14.8); White Blood Cell Count 6.3 X10^3/uL (4.5-11.0)
[2020-08-14 19:53] LABS: Alanine Aminotransferase 39 IU/L (<50); Albumin 4.1 g/dL (3.5-5.0); Albumin Globulin Ratio 1.5 (1.0-2.8); Alkaline Phosphatase 76 U/L (38-126); Aspartate Aminotransferase 50 IU/L (17-59); Bilirubin Total 0.7 mg/dL (0.2-1.3); Blood Urea Nitrogen 26 mg/dL (9-20); Calcium 9.6 mg/dL (8.4-10.2); Carbon Dioxide 30 mmol/L (22-32); Chloride 101 mmol/L (98-107); Cholesterol 172 mg/dL (140-199); Estimated Glomerular Filt Rate > 60.0 mL/min (>60); Globulin 2.7 g/dL (1.7-4.1); Glucose 91 mg/dL (80-110); HDL Cholesterol 75 mg/dL (40-60); HEMOLYSIS < 15 (0-50); LDL Cholesterol Calculated 78 mg/dL (<100); Potassium 4.3 mmol/L (3.4-5.1); Sodium 138 mmol/L (137-145); Total Protein 6.8 g/dL (6.3-8.2); Triglycerides 96 mg/dL (35-150)
[2020-08-14 20:22] LABS: Prostate Specific Antigen 1.24 ng/mL (0.10-4.00)
[2020-08-14 20:23] LABS: TSH w/ Reflex to FT4 0.74 uIU/mL (0.47-4.68)
[2020-08-14 20:25] LABS: Testosterone 238 ng/dL (71.8-623)
== END ==
PROVIDERS: PCP Internal Medicine; Visit Provider Internal Medicine
DX: N52.9 Male erectile dysfunction, unspecified (principal); R53.83 Other fatigue; E78.2 Mixed hyperlipidemia; N40.1 Benign prostatic hyperplasia with lower urinary tract symptoms
CPT/HCPCS: 80053; 80061; 84153; 84403; 84443; 85025

== ENCOUNTER → 2020-11-16 15:25 | Outpatient (CLI) | payer MEDICARE, OTHER, SELFPAY ==
[2020-11-16 16:37] LABS: BUN Creatinine Ratio 18.5 (6-22); Blood Urea Nitrogen 20 mg/dL (9-20); Calcium 9.5 mg/dL (8.4-10.2); Carbon Dioxide 32 mmol/L (22-32); Chloride 102 mmol/L (98-107); Estimated Glomerular Filt Rate > 60.0 mL/min (>60); Glucose 97 mg/dL (80-110); HEMOLYSIS < 15 (0-50); Sodium 137 mmol/L (137-145)
[2020-11-16 16:48] LABS: Hemoglobin A1C% w Est Avg Glu 5.4 % (4.0-6.0)
== END ==
PROVIDERS: PCP Internal Medicine; Referring Provider Orthopaedic Surgery Adult Reconstructive Orthopaedic Surgery; Visit Provider Orthopaedic Surgery Adult Reconstructive Orthopaedic Surgery
DX: Z01.818 Encounter for other preprocedural examination (principal); R73.9 Hyperglycemia, unspecified; Z01.812 Encounter for preprocedural laboratory examination
CPT/HCPCS: 36415; 80048; 83036

== ENCOUNTER → 2020-11-21 10:14 | Outpatient (CLI) | payer MEDICARE, OTHER, SELFPAY | PROVIDERS: PCP Internal Medicine; Referring Provider Nurse Practitioner Family; Visit Provider Nurse Practitioner Family | DX: Z01.818 Encounter for other preprocedural examination (principal) | CPT/HCPCS: 93005; 93010 ==

== ENCOUNTER → 2020-11-26 14:05 | Outpatient (CLI) | payer MEDICARE, OTHER, SELFPAY ==
[2020-11-26 15:45] LABS: COVID19 -Nasal RAPID Negative (Negative)
== END ==
PROVIDERS: PCP Internal Medicine; Visit Provider Physician Assistant
DX: Z20.822 Contact with and (suspected) exposure to COVID-19 (principal)
CPT/HCPCS: 87635; C9803

== ENCOUNTER 2020-11-28 07:07 | Day surgery (SDC) | payer MEDICARE, OTHER, SELFPAY ==
[2020-11-28] VITALS (13 sets, daily range): BP systolic 121–152; BP diastolic 60–84; PULSE 60–96; RESP 14–18; TEMP 36.2–36.8; O2SAT 94–98; BMI 31.6
--- NOTE | 2020-11-28 06:00 | DI.RAD.S_ITS ---
PROCEDURE: XR KNEE LT 1TO2V INDICATIONS: post op films TECHNIQUE: 2 view(s) of the knee acquired. COMPARISON: None. FINDINGS: Bones: Patient is status post knee joint arthroplasty. Hardware components are in expected positions. Visualized bony structures are intact. Soft tissues: Overlying postoperative changes are noted. IMPRESSION: Normal alignment after left total knee arthroplasty. Dictated by: Stone Walters M.D. on 11/28/2020 at 11:46 Approved by: Stone Walters M.D. on 11/28/2020 at 11:46
[2020-11-28] MEDS: LACTATED RINGERS 1,000 ML 42 ML IV (07:51)
[2020-11-28] MEDS: MELOXICAM 7.5 MG TABLET 15 MG PO (08:02)
[2020-11-28] MEDS: ACETAMINOPHEN 325 MG TABLET 975 MG PO (08:02)
[2020-11-28] MEDS: PREGABALIN 75 MG CAPSULE PO (08:02)
[2020-11-28 08:16] LABS: Add Manual Diff / Slide Review NO; Basophils Absolute Auto 100 /uL (0-100); Basophils Percent Auto 0.6 % (0-2); Eosinophils Absolute Auto 400 /uL (0-450); Eosinophils Percent Auto 3.9 % (2-4); Hematocrit 41.3 % (41-53); Hemoglobin 13.8 g/dL (13.5-17.5); Lymphocytes Absolute Auto 1000 /uL (1100-4500); Lymphocytes Percent Auto 10.9 % (25-40); Mean Corpuscular HGB Conc 33.5 % (30-36); Mean Corpuscular Hemoglobin 32.5 PG (26-34); Mean Corpuscular Volume 96.9 fL (80-100); Monocytes Absolute Auto 1200 /uL (0-900); Monocytes Percent Auto 12.6 % (3-14); Neutrophils Absolute Auto 6600 /uL (1500-7000); Platelet Count 219 X10^3/uL (150-400); Red Blood Cell Count 4.26 X10^6/uL (4.5-5.9); White Blood Cell Count 9.2 X10^3/uL (4.5-11.0)
[2020-11-28 08:27] LABS: Alanine Aminotransferase 19 IU/L (<50); Albumin 4.1 g/dL (3.5-5.0); Albumin Globulin Ratio 1.4 (1.0-2.8); Alkaline Phosphatase 53 U/L (38-126); Aspartate Aminotransferase 26 IU/L (17-59); BUN Creatinine Ratio 20.2 (6-22); Bilirubin Total 0.4 mg/dL (0.2-1.3); Blood Urea Nitrogen 22 mg/dL (9-20); Calcium 9.5 mg/dL (8.4-10.2); Carbon Dioxide 30 mmol/L (22-32); Chloride 103 mmol/L (98-107); Estimated Glomerular Filt Rate > 60.0 mL/min (>60); Globulin 2.9 g/dL (1.7-4.1); Glucose 109 mg/dL (80-110); HEMOLYSIS < 15 (0-50); Potassium 3.9 mmol/L (3.4-5.1); Sodium 139 mmol/L (137-145)
--- NOTE | 2020-11-28 08:34 | PM.PREOP ---
Pre-operative Note COVID-19 COVID-19 status: Negative Result date/Date tested (Pos, Neg/Pending): 11/26/20 Interval Note History & Physical reviewed/Exam performed by Physician: Yes Changes to H&P: No H&P completed within 30 days and has changed as indicated here:: Plan for conversion of left knee medial UKA to a left total knee arthroplasty
--- NOTE | 2020-11-28 08:37 | SUR.PREOP ---
Patient noted to have multiple allergies listed on profile. Per elen Ayala to give Ancef and will monitor for rash.
[2020-11-28] MEDS: CEFAZOLIN 2 GM/100 ML FROZ.PIGGY IV ×2 (08:49→16:16)
--- NOTE | 2020-11-28 09:23 | SUR.OPER ---
Supine on padded OR bed. Pillow under head, arms secured on padded armboards <90 degree abduction. Safety belt across torso. Non-operative leg secured with tape over blanket over lower leg. Operative leg secured in Dr. Phan's knee positioner. Folded bath blanket under heel of operative foot.
[2020-11-28] MEDS: TRANEXAMIC ACID 1,000 MG VIAL 1000 MG INJ ×2 (09:35→10:36)
[2020-11-28] MEDS: ROPIVACAINE 0.5% PF 5 MG/ML 20ML VIAL 60 ML INJ (09:35)
[2020-11-28] MEDS: MORPHINE 4 MG/ML INJ INJ (09:37)
[2020-11-28] MEDS: KETOROLAC 30 MG/ML VIAL IV (09:37)
--- NOTE | 2020-11-28 11:17 | PM.OP.1 ---
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 Surgeon: Davis Phan Family Service Assistant: Alessandro Fenton Anesthesia Type: General and Spinal Operative Notes Findings: Intact medial UKA, advacned OA lateral compartment Closure Type: primary Prosthetic devices, grafts, tissues, transplants, or devices: Cash and nephew size 6 left BCS femoral component Size 5 left tibial base plate 14 mm x 100 mm sandra 2 tibial stem Left size 5-6 15 mm journey 2 B CS constrained polyethylene 35 mm oval patellar button Estimated Blood Loss (mL): 100 Tourniquet time (min): 75 Procedure in detail: Patient was met in the preoperative holding area where the site and side of surgery were marked by . Informed consent had been reviewed in clinic but was also reviewed the preoperative holding area and all last minute questions were answered. Patient was then brought back in the operating room where he was induced under general anesthesia after receiving spinal anesthetic. The left thigh then had a nonsterile tourniquet placed on left lower extremity then prepped and draped in normal sterile fashion. Surgical time-out was performed verifying the site and side of surgery as well as the name of the patient. A 10. Blade was used to open up his old incision and was advanced proximally approximately 3-4 cm. Medial and lateral skin flaps were then elevated and a new 10. Blade was then used to make a medial parapatellar arthrotomy. At this point a medial peel was performed followed by resection of Hoffa's fat pad and the lateral meniscus. Partial synovectomy was also performed. The ACL and PCL were then removed Edin's line was then marked with electrocautery and the femoral canal was entered using the drill. The singh was then placed intramedullary and the cutting block was pinned with the medial unicompartmental knee arthroplasty femoral component in place. Distal femoral cut was then initiated and the cutting block was removed the medial UKA femoral component was then removed using revision saw blade and flexible osteotomes the distal femoral cut was then completed the tibial base plate was then removed using revision saw blade and flexible osteotomes well. And gain access the tibial canal at the footprint of the ACL. Intramedullary singh was then placed and a cutting jig was placed cutting just underneath the surface of where the medial UKA was seated. Our extension gap was checked and found to be 15 mm. The femur was then sized to a size 6. Gap telecommunications officer was then used with the osteotome placed underneath the medial foot to recreate the thickness of the femoral component. This was then marked and compared to [place] line which showed external rotation. This was then pinned and the 5 1 cutting block was then used. Trial components were then placed. There was slight laxity in full extension to varus stress and there was laxity in full flexion to valgus stress. Because of this I elected to proceed with a constrained polyethylene. The tibial base plate was marked using floating technique and the patella was then cut and resurfaced for 35 mm button. Components were then removed and the tibial base plate was pinned into place and reamed and punched. Then reamed up for a size 100 mm x 14 mm tibial stem. Bone plug was then placed in the bottom the canal as well as the femoral canal. All cut surfaces were thoroughly irrigated with pulse lavage normal saline and our periarticular injection was then placed. Cement was placed in the tibial canal as well as on this cut surface of the tibia. The tibial base plate with the tibial stem was then placed after placement of cement on undersurface of the tibial base plate. This was then malleted into place and all excess cement was removed. There was then finger packed onto the surface of the distal femur with exception of the posterior condylar cut. Put cement was placed on the feet of the femoral component this was malleted into place all excess cement was removed. A 15 mm polyethylene trial was then inserted and the knee was brought into full extension and internally rotated. We then cemented the patellar button into place and removed all excess cement Betadine solution was then introduced into the wound allowed to sit during cement curing. Tourniquet was let down. Once cement was fully cured the knee was thoroughly irrigated with pulse lavage normal saline hemostasis was obtained using electrocautery. Excess cement was chipped away from the tibial and femoral components. And a size 15 mm constrained polyethylene was then placed. Verifying that both medial and lateral tabs were fully seated. The medial parapatellar arthrotomy was then closed using 1. Vicryl interrupted fashion followed by running Quill suture followed by 2 Vicryl in the subcutaneous layer followed by 3-0 running Stratafix Dermabond and a hollie dressing Complications: none Post-operative Condition: stable Disposition: PACU Plan for aftercare: 24 hours post-op abx, WBAT LLE, ASA 325mg BID for 6 weeks
--- NOTE | 2020-11-28 11:53 | SUR.PHASEI ---
1155-Report called to MARSHA Donaldson, will transfer pt up to room now
--- NOTE | 2020-11-28 12:02 | SUR.PHASEI ---
Pt transported by MARSHA Rodgers up to room 225
[2020-11-28] MEDS: LACTATED RINGERS 1,000 ML 100 ML IV ×2 (12:35→23:00)
[2020-11-28] MEDS: OXYCODONE IR 10 MG TABLET PO ×3 (13:10→20:34)
[2020-11-28] MEDS: ACETAMINOPHEN 325 MG TABLET 650 MG PO ×2 (13:10→20:36)
--- NOTE | 2020-11-28 14:25 | PT.IIE ---
Current Diagnoses Unilateral primary osteoarthritis, left knee (11/28/20) Surgery Performed Operation Date: 11/28/20 08:45 Actual Procedures p Total Knee Arthroplasty(Left) - Davis Phan MD Surgical History (Last Updated 11/27/20 @ 12:54 by Geri Flood, RN) H/O repair of rotator cuff History of colonoscopy History of dental surgery History of mandibular surgery History of open reduction and internal fixation (ORIF) procedure History of partial knee replacement Hx of hand surgery Hx of left knee surgery Medical History (Last Updated 11/27/20 @ 12:58 by Geri Flood, RN) Arthritis Chronic insomnia Disc degeneration, lumbar Flat feet, bilateral Former smoker GERD (gastroesophageal reflux disease) Gynecomastia Hearing loss History of cellulitis History of diverticulitis Hyperlipidemia Hypertension Low back pain Mixed hyperlipidemia Obesity Osteoarthritis Primary osteoarthritis of left knee Venous insufficiency Vision changes Weight gain Physical Therapy Inpatient Evaluation/Re-Eval M1 PT/OT-IP Prior Functional Status Start: 11/28/20 16:11 Freq: NEEDED Status: Active Protocol: Document 11/28/20 14:25 AB (Rec: 11/28/20 16:58 AB [id number]) Medical Review Prior Functional Status Medical History Reviewed Yes Communication able to make needs know but requires increase time to answer questions Mobility and Gait pt stated that he is independent with all mobilities and ambulation without AD Social History Household Members none Living Arrangements House Number of Floors (Floors) One Floor Number of Stairs To Enter/Railing? rampt to enter Home Environment Tub/Shower Doors,Ramp Home Equipment Front Wheel Walker,Shower Seat with Backrest,Hand Held Shower,Grab Bars In Shower Additional Social History Comment pt stated that his sons with alternate to be with him and will have somebody at home with him 80% of the time. M2 PT-IP Current Condition Start: 11/28/20 16:11 Freq: NEEDED Status: Active Protocol: Document 11/28/20 14:25 AB (Rec: 11/28/20 16:58 AB [id number]) Physical Therapy Current Condition Current Condition Evaluation Date 11/28/20 Treatment Diagnosis s/p L TKA; difficulty in walking Onset Date 11/28/20 Weight Bearing Status Weight Bearing Status Weight Bear as Tolerated Allowed Weight Bearing Amount (enter % WBAT LLE or #) (%) M3 PT-IP Subjective Start: 11/28/20 16:11 Freq: NEEDED Status: Active Protocol: Document 11/28/20 14:25 AB (Rec: 11/28/20 16:58 AB [id number]) Subjective Physical Therapy Visit Type Type Initial Evaluation Visit Start Time 14:25 Visit Stop Time 15:06 Total Visit Minutes 41 Number of SALAD BAR CLERK Visits 0 Physical Therapy Visit Comments Patient Comments pt agreed to do PT Therapy Pain Assessment Pain When Pain Assessed At Rest Pain Present Pain Present Pain Reported Location knee Intensity 8 Scale Used Numeric (0 - 10) Pain Management Techniques Apply Cold,Distraction, Modification of Treatment,Re- positioning,Timing of Activity with Medications M4 PT-IP Mobility and Gait Start: 11/28/20 16:11 Freq: NEEDED Status: Active Protocol: Document 11/28/20 14:25 AB (Rec: 11/28/20 16:58 AB [id number]) PT-Bed Mobility Assessment Supine to Sit Supine to Sit Standby Assistance Sit to Supine Sit to Supine Standby Assistance PT-Transfer Assessment Sit to and From Stand Sit to and from Stand Moderate Assistance,1 Person Assistance,Use of Upper Extremities Equipment Transfer Assistive Device Gait Belt,Front Wheeled Walker Orthotic/Prosthetic Devices or Brace: No Comments Mobility Comments BP 131/80 . provided post-op folder and reviewed contents. educated on importance of ROM . completed supine to sit SBA and cues. pt was able to sit on EOB SBA. c/o increase pain . pt requires increase time to answer questions and follow directions. completed sit to stand mod A and cues. ambulated in roomm using FWW 25 ft mod A and cues. pt requested to go back to bed. completed sit to supine SBA. positioned in bed. pt requested for pain meds and nurse aware. call light and table placed within reach. Gait Assessment Gait Gait Assistance Required: Moderate Assistance Distance (Feet) 25 Able to Maintain Weight Bearing Status Yes During Gait Assistive Devices Assistive Device Gait Belt,Front Wheeled Walker Orthotic/Prosthetic Devices or Brace: No Gait Deviations General Gait Pattern Antalgic,Decreased Stride Length,Decreased Feet Clearance,Step-to Gait Factors Limiting Gait Function Factors Limiting Gait Function Decreased Activity Tolerance, Decreased Strength,Difficulty Following Directions,Pain,Poor Balance,Poor Safety Awareness PT-Balance Assessment Sitting Balance and Reactions Static Sitting Balance Ability Good Dynamic Sitting Balance Ability Good Standing Balance and Reactions Static Standing Balance Ability Fair Dynamic Standing Balance Ability Fair Device Used FWW M5 PT-IP Objective Assessments Start: 11/28/20 16:11 Freq: NEEDED Status: Active Protocol: Document 11/28/20 14:25 AB (Rec: 11/28/20 16:58 AB [id number]) Orientation Orientation/Cognition Level of Alertness Alert Orientation Name,Place,Situation Safety Awareness Decreased Safety Awareness Gross Range of Motion Lower Extremity ROM Assessment Left Impaired Impairments L knee flexion AROM: 30 deg L knee extension : ~ 20 deg less to neutral pain limiting mobility Strength Lower Extremity Strength Assessment Left Impaired Hip 3+/5 Knee 3+/5 Muscle Tone Muscle Tone WNL Yes M6 PT-IP Treatment Start: 11/28/20 16:11 Freq: NEEDED Status: Active Protocol: Document 11/28/20 14:25 AB (Rec: 11/28/20 16:58 AB [id number]) Physical Therapy Treatment Exercises Exercises Quad Sets,Heel Slides Education Education Provided Precautions,Weight Bearing Status,Post-Op Packet,Safety M7 PT-IP Assessment and Plan Start: 11/28/20 16:11 Freq: NEEDED Status: Active Protocol: Document 11/28/20 14:25 AB (Rec: 11/28/20 16:58 AB [id number]) PT Summary Assessment and Plan Potential Rehabilitation Potential Good Status of Condition at Evaluation Evolving Summary Impairments Pain,ROM,Strength,Balance, Coordination,Sensation,Tone, Cognition,Bed Mobility, Transfers,Gait,Activity Tolerance Assessment Summary pt requiring mod A and cues. pt just had surgery this morning and will likely improve during hospital stay. will conduct caregiver training when appropriate. will continue to assess progress. Goals Bed Mobility Goal Independent Transfer Goal Independent,Front Wheeled Walker Gait Goal Independent,Front Wheel Walker Gait Distance 150 Days to Meet Goals 5 Frequency of Treatment Frequency Of Treatment Twice a Day Treatment Plan Physical Therapy Treatment Plan Bed Mobility Training,Transfer Training,Gait Training, Therapeutic Exercise,Balance Retraining,Post Op Education, Discharge Planning,Hot or Cold Pack,Neuromuscular Re-ed, Coordination Retraining,Manual Therapy Recommendations To Nursing Amount of Assist Needed 1 Person Assist Discharge Recommendations PT Discharge Recommendations Home with Assistance,Home Health,Outpatient PT Transportation Needs at Discharge Private Vehicle
[2020-11-28 14:40] LABS: Add Manual Diff / Slide Review NO; Basophils Absolute Auto 0 /uL (0-100); Basophils Percent Auto 0.2 % (0-2); Eosinophils Absolute Auto 0 /uL (0-450); Eosinophils Percent Auto 0.1 % (2-4); Hematocrit 38.1 % (41-53); Hemoglobin 12.9 g/dL (13.5-17.5); Lymphocytes Absolute Auto 400 /uL (1100-4500); Lymphocytes Percent Auto 3.5 % (25-40); Mean Corpuscular Hemoglobin 33.2 PG (26-34); Mean Corpuscular Volume 97.5 fL (80-100); Monocytes Absolute Auto 200 /uL (0-900); Monocytes Percent Auto 1.5 % (3-14); Neutrophils Absolute Auto 11900 /uL (1500-7000); Neutrophils Percent Auto 94.7 % (50-75); Platelet Count 207 X10^3/uL (150-400); Red Cell Distribution Width 13.1 % (11.6-14.8); White Blood Cell Count 12.6 X10^3/uL (4.5-11.0)
[2020-11-28] MEDS: HYDROMORPHONE 0.5 MG INJ 0.2 MG IV (14:58)
--- NOTE | 2020-11-28 15:09 | PC.NURSE ---
Postop Note Patient arrived from PACU at 1210 to room 225. Alert and oriented x3. Initially denied pain on arrival but reported pain 5/10 to left knee an hour later, oxycodone and tylenol administered per emar. Denies nausea. SpO2 97-98% RA. ADOLPH dressing with TOSHIA wrap to left knee C/D/I. CMS intact to BLEs. Up with PT and reported pain increased to 8/10, administered Dilaudid IV per emar. Oriented to room on arrival and to call light/bed/tv controls. All belongings at bedside including clothing and cell phone. Declines to lock up any valuables in the safe. Call light within reach.
[2020-11-28] MEDS: TRAZODONE 50 MG TABLET PO (20:35)
[2020-11-28] MEDS: ATORVASTATIN 20 MG TABLET 10 MG PO (20:35)
[2020-11-28] MEDS: diphenhydrAMINE 25 MG TABLET PO (20:35)
[2020-11-28] MEDS: ASPIRIN 325 MG TABLET PO (20:35)
[2020-11-28] MEDS: DOCUSATE 100 MG CAPSULE PO (20:36)
[2020-11-29] MEDS: CEFAZOLIN 2 GM/100 ML FROZ.PIGGY IV (00:08)
[2020-11-29] MEDS: OXYCODONE IR 10 MG TABLET PO ×4 (00:08→12:39)
[2020-11-29 00:26] VITALS: BP 116/58; PULSE 81; RESP 20; TEMP 36.6; O2SAT 92
[2020-11-29 02:56] VITALS: BP 108/64; PULSE 76; RESP 20; TEMP 36.3; O2SAT 93
[2020-11-29 05:20] LABS: Hematocrit 30.8 % (41-53); Hemoglobin 10.4 g/dL (13.5-17.5)
[2020-11-29] MEDS: PANTOPRAZOLE 20 MG TABLET PO (07:11)
[2020-11-29 07:45] VITALS: BP 116/67; PULSE 68; RESP 18; O2SAT 98
[2020-11-29 08:00] VITALS: TEMP 36.8
--- NOTE | 2020-11-29 08:00 | PM.PN.1 ---
Subjective Subjective Date Patient Seen: 11/29/20 Time Patient Seen: 08:00 Interval history: Patient is POD# 1 s/p left knee conversion of unicompartmental knee replacement to total knee with Dr. Phan. Pain has been controlled with Oxycodone. He has mobilized in the room. He is voiding appropriately. No chest pain, shortness of breath, nausea or vomiting. No complaints. Exam Vital Signs (past 8 hours): - 11/29/20 00:26 11/29/20 02:56 11/29/20 07:45 Temperature 97.9 F 97.4 F L Pulse Rate 81 76 68 Respiratory Rate 20 20 18 Blood Pressure 116/58 L 108/64 116/67 Pulse Oximetry 92 93 98 Oxygen Delivery Method Room Air Oxygen Flow Rate 0 Narrative Exam Narrative: 75 year old male resting in bed, alert and oriented in no acute distress. ADOLPH dressing in place is CDI. Patient able to perform straight leg raise, dorsiflex and plantar flex the ankle. Nonpitting edema of the extremity, patient states this is his baseline. Palpable pedal pulse. Calves soft, nontender. Objective Labs Result Diagrams: 11/29/20 04:45 11/28/20 08:00 Labs: Laboratory Results - last 24 hr 11/28/20 11/28/20 11/28/20 08:00 08:00 14:14 WBC 9.2 12.6 H RBC 4.26 L 3.90 L Hgb 13.8 12.9 L Hct 41.3 38.1 L MCV 96.9 97.5 MCH 32.5 33.2 MCHC 33.5 34.0 RDW 13.0 13.1 Plt Count 219 207 Neut % (Auto) 72.0 94.7 H D Lymph % (Auto) 10.9 L 3.5 L [place] % (Auto) 12.6 1.5 L Eos % (Auto) 3.9 0.1 L Baso % (Auto) 0.6 0.2 Neut # (Auto) 6600 42243 H Lymph # (Auto) 1000 L 400 L [place] # (Auto) 1200 H 200 Eos # (Auto) 400 0 Baso # (Auto) 100 0 Sodium 139 Potassium 3.9 Chloride 103 Carbon Dioxide 30 BUN 22 H Creatinine 1.09 Estimated GFR > 60.0 BUN/Creatinine Ratio 20.2 Glucose 109 Calcium 9.5 Total Bilirubin 0.4 AST 26 ALT 19 Alkaline Phosphatase 53 Total Protein 7.0 Albumin 4.1 Globulin 2.9 Albumin/Globulin Ratio 1.4 11/29/20 04:45 WBC RBC Hgb 10.4 L Hct 30.8 L MCV MCH MCHC RDW Plt Count Neut % (Auto) Lymph % (Auto) [place] % (Auto) Eos % (Auto) Baso % (Auto) Neut # (Auto) Lymph # (Auto) [place] # (Auto) Eos # (Auto) Baso # (Auto) Sodium Potassium Chloride Carbon Dioxide BUN Creatinine Estimated GFR BUN/Creatinine Ratio Glucose Calcium Total Bilirubin AST ALT Alkaline Phosphatase Total Protein Albumin Globulin Albumin/Globulin Ratio PFSH Medical History Arthritis Chronic insomnia Disc degeneration, lumbar Flat feet, bilateral Former smoker GERD (gastroesophageal reflux disease) Gynecomastia Hearing loss History of cellulitis History of diverticulitis Hyperlipidemia Hypertension Low back pain Mixed hyperlipidemia Obesity Osteoarthritis Primary osteoarthritis of left knee Venous insufficiency Vision changes Weight gain Surgical History H/O repair of rotator cuff History of colonoscopy History of dental surgery History of mandibular surgery History of open reduction and internal fixation (ORIF) procedure History of partial knee replacement Hx of hand surgery Hx of left knee surgery Family History Father Heart disease Social History marital status: household members: none occupational status: employed Smoking Status: Former smoker alcohol intake: former substance use type: does not use Assessment & Plan Assessment & Plan narrative: -Patient is POD#1 s/p TKA. Doing well postoperatively. -Continue to mobilize with PT. -ASA 325mg daily for DVT prophylaxis. -Prescription for oxycodone provided for discharge. -Discharge to home this afternoon if cleared by PT. Quality VTE Deep Vein Thrombosis/Pulmonary Embolism Present on Admission: No
[2020-11-29] MEDS: ACETAMINOPHEN 325 MG TABLET 650 MG PO (08:15)
[2020-11-29] MEDS: DOCUSATE 100 MG CAPSULE PO (08:15)
[2020-11-29] MEDS: SODIUM CHLORIDE 0.9% FLUSH 10 ML IV (08:16)
[2020-11-29] MEDS: ASPIRIN 325 MG TABLET PO (08:16)
[2020-11-29 08:34] VITALS: PULSE 74; RESP 16; O2SAT 96
--- NOTE | 2020-11-29 09:45 | PT.IPTN ---
Current Diagnoses Unilateral primary osteoarthritis, left knee (11/28/20) Surgery Performed Operation Date: 11/28/20 08:45 Actual Procedures p Total Knee Arthroplasty(Left) - Davis Phan MD Physical Therapy Treatment Note M2 PT-IP Current Condition Start: 11/28/20 16:11 Freq: NEEDED Status: Active Protocol: Document 11/28/20 14:25 AB (Rec: 11/28/20 16:58 AB [id number]) Physical Therapy Current Condition Current Condition Evaluation Date 11/28/20 Treatment Diagnosis s/p L TKA; difficulty in walking Onset Date 11/28/20 Weight Bearing Status Weight Bearing Status Weight Bear as Tolerated Allowed Weight Bearing Amount (enter % WBAT LLE or #) (%) M3 PT-IP Subjective Start: 11/28/20 16:11 Freq: NEEDED Status: Active Protocol: Document 11/29/20 09:12 KS (Rec: 11/29/20 12:41 KS [id number]) Subjective Physical Therapy Visit Type Type Treatment Note Visit Start Time 09:12 Visit Stop Time 09:45 Total Visit Minutes 33 Number of ARBORICULTURE TEACHER Visits 1 Physical Therapy Visit Comments Patient Comments pt agreed to do PT Therapy Pain Assessment Pain When Pain Assessed During Mobility Pain Present Pain Present Pain Reported Location knee Intensity 4 Scale Used Numeric (0 - 10) Description Aching Pain Behaviors Guarding Pain Management Techniques Re-positioning M4 PT-IP Mobility and Gait Start: 11/28/20 16:11 Freq: NEEDED Status: Active Protocol: Document 11/29/20 09:12 KS (Rec: 11/29/20 12:41 KS [id number]) PT-Bed Mobility Assessment Supine to Sit Supine to Sit Standby Assistance Sit to Supine Sit to Supine Standby Assistance Scooting Scooting to Edge of Bed Standby Assistance Scooting Up and Down in Bed Standby Assistance PT-Transfer Assessment Sit to and From Stand Sit to and from Stand Standby Assistance,1 Person Assistance,Use of Upper Extremities Equipment Transfer Assistive Device Gait Belt,Front Wheeled Walker Orthotic/Prosthetic Devices or Brace: No Transfers Transfer Destination Bed Transfer Technique pt ambulated w/ FWW Transfer Ability Level of Assist Standby Assistance Comments Mobility Comments Pt in bed upon arrival from therapy. SBA for sup<>sit and scooting to edge of bed from flat bed. Pt sit<>stand w/ FWW SBA w/ cues for hand placement. Pt then ambulated ~ 100 ft w/ FWW SBA w/ cues for equal step length. He demonstrated safe use of FWW, decreased stride length and foot clearance due to pain and weakness. Reveiwed LE exercises to promote blood flow, strengthening, and ROM. Pt left in bed w/ all needs in reach. Gait Assessment Gait Gait Assistance Required: Standby Assistance,1 Person Assist Distance (Feet) 100 Able to Maintain Weight Bearing Status Yes During Gait Assistive Devices Assistive Device Gait Belt,Front Wheeled Walker Orthotic/Prosthetic Devices or Brace: No Gait Deviations General Gait Pattern Antalgic,Decreased Stride Length,Decreased Feet Clearance,Step-to Gait Factors Limiting Gait Function Factors Limiting Gait Function Decreased Activity Tolerance, Decreased Strength,Difficulty Following Directions,Pain,Poor Balance,Poor Safety Awareness Comments Gait Comments Please refer to mobility section for detail. PT-Balance Assessment Sitting Balance and Reactions Static Sitting Balance Ability Good Dynamic Sitting Balance Ability Good Standing Balance and Reactions Static Standing Balance Ability Good Dynamic Standing Balance Ability Fair Device Used FWW M5 PT-IP Objective Assessments Start: 11/28/20 16:11 Freq: NEEDED Status: Active Protocol: Document 11/28/20 14:25 AB (Rec: 11/28/20 16:58 AB [id number]) Orientation Orientation/Cognition Level of Alertness Alert Orientation Name,Place,Situation Safety Awareness Decreased Safety Awareness Gross Range of Motion Lower Extremity ROM Assessment Left Impaired Impairments L knee flexion AROM: 30 deg L knee extension : ~ 20 deg less to neutral pain limiting mobility Strength Lower Extremity Strength Assessment Left Impaired Hip 3+/5 Knee 3+/5 Muscle Tone Muscle Tone WNL Yes M6 PT-IP Treatment Start: 11/28/20 16:11 Freq: NEEDED Status: Active Protocol: Document 11/29/20 09:12 KS (Rec: 11/29/20 12:41 KS [id number]) Physical Therapy Treatment Exercises Exercises Ankle Pumps,Gluteal Sets,Quad Sets,Heel Slides,Straight Leg Raises Education Education Provided Precautions,Weight Bearing Status,Post-Op Packet,Safety M7 PT-IP Assessment and Plan Start: 11/28/20 16:11 Freq: NEEDED Status: Active Protocol: Document 11/29/20 09:12 KS (Rec: 11/29/20 12:41 KS [id number]) PT Summary Assessment and Plan Potential Rehabilitation Potential Good Status of Condition at Evaluation Evolving Summary Impairments Pain,ROM,Strength,Balance, Coordination,Sensation,Tone, Cognition,Bed Mobility, Transfers,Gait,Activity Tolerance Progress Towards Goals Progressing Toward Goals Assessment Summary Pt required SBA for all bed mobility, transfers, and ambulation today. Min cues for hand placement during sit<> stand and min cues for equal step length during ambulation. Pt tolerated ~100 ft ambulation w/ FWW and LE strengthening exercises. He will benefit from outpatient rehab to improve strength and ROM. Goals Bed Mobility Goal Independent Transfer Goal Independent,Front Wheeled Walker Gait Goal Independent,Front Wheel Walker Gait Distance 150 Days to Meet Goals 5 Frequency of Treatment Frequency Of Treatment Twice a Day Treatment Plan Physical Therapy Treatment Plan Bed Mobility Training,Transfer Training,Gait Training, Therapeutic Exercise,Balance Retraining,Post Op Education, Discharge Planning,Hot or Cold Pack,Neuromuscular Re-ed, Coordination Retraining,Manual Therapy Recommendations To Nursing Amount of Assist Needed 1 Person Assist Discharge Recommendations PT Discharge Recommendations Home with Assistance,Home Health,Outpatient PT Transportation Needs at Discharge Private Vehicle
--- NOTE | 2020-11-29 13:34 | PC.NURSE ---
Went over dc instructions and medications with patient, questions answered. Rx for new meds given, patient taken via WC to vehicle driven by spouse. Patient had all belongings.
--- NOTE | 2020-11-29 15:28 | CM.IDA ---
Initial DCP Assessment Note Pt is a 75 yo male, resident of [place], now POD#1 from Left total knee surgery w/ Dr Phan PCP: Isaías Cazares Payer: [facility] Reviewed chart, pt discussed in multidisciplinary rounds this morning. Therapy has cleared pt for return home w/family to assist and pt has planned for home, DC order from Ortho has already been initiated this morning. No needs expected from DC planning team although will remain available in case this changes today. CHANDAN Nelson
== END 2020-11-29 13:36 | disposition home or self-care (01) ==
LOC: OR 07:08 → AC 07:24
PROVIDERS: PCP Internal Medicine; Referring Provider Orthopaedic Surgery Adult Reconstructive Orthopaedic Surgery; Visit Provider Orthopaedic Surgery Adult Reconstructive Orthopaedic Surgery
PROC: 0SRD0JZ Replacement of Left Knee Joint with Synthetic Substitute, Open Approach (ICD-10-PCS; CPT 27447; principal; 2020-11-28 08:45)
DX: M17.12 Unilateral primary osteoarthritis, left knee (principal); I10 Essential (primary) hypertension; E78.5 Hyperlipidemia, unspecified; K21.9 Gastro-esophageal reflux disease without esophagitis
CPT/HCPCS: 27447; 36415; 73560; 80053; 85014; 85018; 85025; 97110; 97116; 97162; 97530; C1776; J0690; J1100; J1170; J1885; J2250; J2270; J2405; J2704; J3010

== ENCOUNTER → 2020-12-07 15:39 | Outpatient (CLI) | payer MEDICARE, OTHER, SELFPAY ==
[2020-11-28 12:39] VITALS: BMI 31.6
--- NOTE | 2020-12-07 15:43 | DI.US.S_ITS ---
PROCEDURE: US [facility] VENOUS LOW EXTREM LT INDICATIONS: LOCALIZED SWELLING, MASS AMD LUMP, LEFT LOWER TECHNIQUE: Real-time imaging, as well as color and pulse Doppler interrogation, were performed of the lower extremity deep veins from the inguinal ligament to the popliteal fossa. COMPARISON: [facility], , [facility] VENOUS LOW EXTREM LT, 09/16/2019, 14:37. FINDINGS: The common femoral, femoral and popliteal veins are normally compressible, and free of intraluminal thrombus. Color and pulse Doppler demonstrate normal phasic intraluminal flow. There is normal augmentation response to distal compression maneuver. IMPRESSION: Negative for deep venous thrombosis. Dictated by: Jani Smith M.D. on 12/07/2020 at 16:29 Approved by: Jani Smith M.D. on 12/07/2020 at 16:29
== END ==
PROVIDERS: PCP Internal Medicine; Referring Provider Orthopaedic Surgery Foot and Ankle Surgery; Visit Provider Orthopaedic Surgery Foot and Ankle Surgery
DX: R22.42 Localized swelling, mass and lump, left lower limb (principal)
CPT/HCPCS: 93971

== ENCOUNTER → 2020-12-25 16:50 | Outpatient (CLI) | payer MEDICARE, OTHER, SELFPAY ==
[2020-11-28 12:39] VITALS: BMI 31.6
--- NOTE | 2020-12-25 | DI.MRI.S_ITS ---
PROCEDURE: MR KNEE LT WO CON INDICATIONS: FALL POST KNEE SURGERY TECHNIQUE: Noncontrast sagittal PD fast spin echo and T2 fast spin echo with fat saturation, sagittal 3-D FLASH with fat saturation; coronal T1 spin echo and PD fast spin echo with fat saturation, and axial PD fast spin echo with fat saturation through the knee. COMPARISON: [facility] [place], CR, XR KNEE 4+ VIEWS LEFT, 12/11/2020, 11:58. [facility] [place], CR, XR KNEE 4+ VIEWS LEFT, 12/25/2020, 16:02. FINDINGS: Image quality: There is extensive magnetic susceptibility artifact from patient's knee prosthesis limiting evaluation. Menisci: Status post total knee replacement. Cruciate ligaments: Unable to be assessed due to artifact. Medial structures: Medial collateral ligament is attenuated in signal and not well assessed due to artifact. Semimembranosus tendon insertions appear preserved. Pes anserinus tendons appear intact. Lateral structures: The lateral collateral ligament, long and short heads of the biceps femoris tendon appear intact. The popliteus tendon appears grossly intact. Anterior structures: There is severe partial tearing of the medial components of the quadriceps tendon including the vastus medialis and rectus femoris. There is associated edema and tearing with involving the visualized medial musculature in the anterior compartment. There is also severe tearing of the medial retinaculum which is thickened and heterogeneous in appearance. There is associated moderate lateral tilt and mild lateral shift of the patella. The patellar tendon demonstrates tendinopathy and moderate partial tearing medially. Bones and cartilage: Limited evaluation due to artifact demonstrates no definite periprosthetic fractures. Joint space: There is a moderate joint effusion with internal curvilinear filling defects likely representing a hemarthrosis. There is extensive periarticular subcutaneous edema. IMPRESSION: 1. Limited study due to magnetic susceptibility artifact from patient's prosthesis. 2. Severe partial tearing of the medial components of the quadriceps tendon with tearing and edema extending proximally along the visualized myotendinous junctions. Severe tearing of the medial retinaculum also demonstrated. There is associated lateral tilt and shift of the patella. 3. Moderate joint effusion with a probable hemarthrosis. 4. No definite periprosthetic fractures. Dictated by: Mihir Levin M.D. on 12/26/2020 at 8:17 Approved by: Mihir Levin M.D. on 12/26/2020 at 8:30
== END ==
PROVIDERS: PCP Internal Medicine; Referring Provider Orthopaedic Surgery Adult Reconstructive Orthopaedic Surgery; Visit Provider Orthopaedic Surgery Adult Reconstructive Orthopaedic Surgery
DX: M23.92 Unspecified internal derangement of left knee (principal); T84.093A Other mechanical complication of internal left knee prosthesis, initial encounter; M25.462 Effusion, left knee; S83.8X2A Sprain of other specified parts of left knee, initial encounter; Z96.652 Presence of left artificial knee joint
CPT/HCPCS: 73721

== ENCOUNTER → 2020-12-26 14:16 | Outpatient (CLI) | payer MEDICARE, OTHER, SELFPAY ==
[2020-11-28 12:39] VITALS: BMI 31.6
[2020-12-26 14:41] LABS: COVID19 -Nasal RAPID Negative (Negative)
== END ==
PROVIDERS: PCP Internal Medicine; Visit Provider Physician Assistant
DX: Z20.822 Contact with and (suspected) exposure to COVID-19 (principal)
CPT/HCPCS: 87635

== ENCOUNTER 2020-12-28 12:22 | Day surgery (SDC) | payer MEDICARE, OTHER, SELFPAY ==
[2020-11-28 12:39] VITALS: BMI 31.6
[2020-12-28] VITALS (14 sets, daily range): BP systolic 104–147; BP diastolic 34–82; PULSE 76–88; RESP 10–21; TEMP 36.6–37.6; O2SAT 93–99; BMI 30.9
[2020-12-28] MEDS: VANCOMYCIN 1,000 MG/200 ML PIGGYBACK 200 MG IV (13:35)
[2020-12-28] MEDS: LACTATED RINGERS 1,000 ML 42 ML IV ×2 (13:35→17:05)
--- NOTE | 2020-12-28 14:12 | PM.PREOP ---
Pre-operative Note COVID-19 COVID-19 status: Negative Result date/Date tested (Pos, Neg/Pending): 12/26/20 Interval Note History & Physical reviewed/Exam performed by Physician: Yes Changes to H&P: No H&P completed within 30 days and has changed as indicated here:: Plan for repair of left ruptured chayito-patellar arthrotomy with possible quad tendon repair
[2020-12-28] MEDS: CEFAZOLIN 2 GM/100 ML FROZ.PIGGY IV ×2 (14:52→22:22)
--- NOTE | 2020-12-28 15:13 | SUR.OPER ---
Supine on padded OR bed. Pillow under head, arms secured on padded armboards <90 degree abduction. Safety belt across torso. Non-operative leg secured with tape over blanket over lower leg. Operative leg sterile draped and in control of the surgeon.
[2020-12-28] MEDS: ROPIVACAINE 0.5% PF 5 MG/ML 20ML VIAL 10 ML INJ (15:19)
[2020-12-28] MEDS: KETOROLAC 30 MG/ML VIAL IV (15:20)
[2020-12-28] MEDS: MORPHINE 4 MG/ML INJ IV (15:21)
[2020-12-28] MEDS: VANCOMYCIN 1,000 MG VIAL 1000 MG TOP (15:52)
--- NOTE | 2020-12-28 17:26 | PM.OP.1 ---
Operative Date/Time/Diagnoses Date of procedure: 12/28/20 Time of procedure: 17:26 Pre-op diagnosis: Rupture of medial chayito-patellar arthrotomy and possible quad tendon tear Post-op diagnosis: same Procedure & Clinicians Procedure: Repair of medial chayito-patellar arthrotomy disruption and quad tendon repair Same procedure as scheduled: Yes Indications: Extensor mechanism disruption after a GLF Surgeon: Davis Phan Environmental Sustainability Manager: Flora Krause Anesthesia Type: General Operative Notes Findings: Ruptured medial parapatellar arthrotomy disruption of the quadriceps tendon obliquely across quadriceps approximately 5-7 cm from the insertion on the patella Closure Type: non-primary Specimen(s): none sent Estimated Blood Loss (mL): 200 Tourniquet time (min): 90 Procedure in detail: Patient was met in the preoperative holding area where the site and side of surgery were marked by . Informed consent was reviewed the preoperative holding area including the risks and benefits of surgery. The risks include infection, need for future surgeries, arthrofibrosis, stiffness, continued pain, extensor mechanism weakness, extensor lag, DVT, PE, , etc. patient demonstrates understanding the risks and benefits of surgery and wishes to proceed with a left knee medial parapatellar arthrotomy disruption repair as well as a quadriceps tendon repair. Patient was brought back in the operating room where a nonsterile tourniquet was placed on the low left upper thigh and the patient was then induced under general anesthesia. The left lower extremity was then prepped and draped in normal sterile fashion. A surgical time-out was performed verifying the site and side of surgery as well as the name of the patient. The left lower extremity was then exsanguinated using an Esmarch and the tourniquet was inflated 250 mm of mercury. His previous total knee arthroplasty incision is well healed and incised through this old scar and that extended the incision approximately 10 cm proximal. At this point dark hematoma was encountered this was evacuated away medial and lateral flaps were elevated and incision was extended proximally to the proximal extent of the disruption. This point was noted that he had a partial disruption of his medial parapatellar arthrotomy the disruption then crossed the quadriceps tendon obliquely and entered the rectus femoris and vastus lateralis muscle bellies themselves over the lateral aspect of the thigh 15-20 cm proximal to the superior pole of the patella. The knee was then irrigated with copious normal saline pulse lavage evacuating all hematoma at this point a rongeur was then used to remove clot and hematoma from the edges of the tendon. The tendon edges were then freshened up as well. I then tagged the quadriceps in 3 different areas moving from medial to lateral and then tagged the corresponding tissue across the disruption for provisional closure. This appeared to close down the quadriceps tendon disruption. At the site of each of these tag sutures and a running 5. FiberWire Krackow suture was run up into the tendon and back down this was performed both on the proximal side in the quadriceps tendon and muscle belly as well as on the distal side of the quadriceps tendon which remained intact to the superior portion of the patella as well as the medial retinaculum and lateral retinaculum. FiberWire sutures were then tied to their corresponding partner across the disruption thereby reducing the majority of the quadriceps tendon. Half a gram of vancomycin powder was then placed inside the knee joint itself. Once this was complete multiple 1. Vicryl in interrupted fashion were used to reinforce the repair as well as to close the medial retinacular tear which was present. The 1. Vicryl was then used in interrupted fashion to close the vastus lateralis and rectus femoris tears as well. A 1. Vicryl was then used in the sub cutaneous layer. Skin closure was noted to be quite tight at this point. Patient does have chronic edema bilateral lower extremities and along with the disruption of his quadriceps tendon and hematoma skin closure was tenuous. I used [id number] towel clips to provisionally bring the skin edges together I then closed the subcutaneous layer with 1. Vicryl in interrupted fashion followed by 1. Nylons in a vertical mattress fashion. This provided good closure of the skin. The towel clamps were then removed. The skin was then washed and dried and a hollie dressing was then placed. An Ramirez wrap was then wrapped up from his ankle to his upper thigh and the left leg was then placed in a knee immobilizer. Complications: none Post-operative Condition: stable Disposition: PACU Plan for aftercare: Admit for pain control, 24 hours post-op abx, NWB LLE, knee immobilizer at all times, no passive or active knee flexion, ASA 81mg BID for DVT prophylaxis
[2020-12-28] MEDS: OXYCODONE IR 5 MG TABLET PO ×2 (17:41→18:11)
[2020-12-28] MEDS: fentaNYL 100 MCG/2 ML INJ IV ×2 (17:48→17:53)
--- NOTE | 2020-12-28 18:48 | PC.NURSE ---
Addendum entered by Rosa James R.N. 12/28/20 23:27: Pt rouses easily to voice/movement in room. Reports able to sleep. Rates left knee pain 7/10. Ice to site. Warm and pink exposed toes to left foot. Immobilizer remains in place. States improvement in pain. Room air 97% with sleep. Addendum entered by Rosa James R.N. 12/28/20 20:58: Pt reports pain to left knee 9/10, I can't imagine it getting any worse. Pt describes pain at top of knee, tight, pulling, like a sausage skin. Administered oral meds as per emar and will monitor. Continuous pulse oximetry in place. Room air 93%. Addendum entered by Rosa James R.N. 12/28/20 20:50: Pt reports initial relief following dilaudid administration but this is short lived. Encouraged greater elevation and this was accomplished by lying pt's torso low dai's and elevating foot of bed. Ice in place to left knee. Pt reports positive sensation to feet BL. Own compression hose in place to right foot to knee-hi). Right LE scd in place. Original Note: Pt to room 204 from PACU wide awake and conversant. Pt's son joins pt in room. Inspected pt's left knee dressing with CABIN CREW. ADOLPH dressing x 2 intact with operational battery packs. Ramirez wrap to cover and immobilizer in place. Edema present to feet BL. Room air 96%. Pt reports left knee pain 8/10, sharp in nature. Reports little relief from meds given in PACU.
[2020-12-28] MEDS: LACTATED RINGERS 1,000 ML 125 ML IV (18:54)
[2020-12-28] MEDS: HYDROMORPHONE 0.5 MG INJ IV ×3 (18:54→23:57)
[2020-12-28] MEDS: ACETAMINOPHEN 325 MG TABLET 975 MG PO (20:09)
[2020-12-28] MEDS: ASPIRIN EC 81 MG TABLET 325 MG PO (20:10)
[2020-12-28] MEDS: DOCUSATE 100 MG CAPSULE PO (20:13)
[2020-12-28] MEDS: ATORVASTATIN 20 MG TABLET 10 MG PO (20:13)
[2020-12-28] MEDS: diphenhydrAMINE 25 MG TABLET PO (20:19)
--- NOTE | 2020-12-28 20:35 | RT ---
Patient received IS at inital knee surgery one month ago. Still has at home, states he should be going home tommorow. Good chest excursion with deep breath and strong, moist, nonprod cough. Patient encouraged to deep breath and cough frequently while here. RA 95, HR 85, RR 18, BS clear. Able to use his IS once home. No need at this time to give patient another IS.
[2020-12-28] MEDS: LORazepam 0.5 MG TABLET PO (20:55)
[2020-12-28] MEDS: OXYCODONE IR 10 MG TABLET PO (20:57)
[2020-12-28 21:20] LABS: Hematocrit 26.4 % (41-53); Hemoglobin 8.9 g/dL (13.5-17.5)
[2020-12-29 00:02] VITALS: BP 109/70; PULSE 87; RESP 18; TEMP 36.7; O2SAT 100
[2020-12-29] MEDS: OXYCODONE IR 10 MG TABLET PO ×3 (00:49→08:53)
[2020-12-29] MEDS: ZOLPIDEM 5 MG TABLET PO (03:08)
[2020-12-29] MEDS: LACTATED RINGERS 1,000 ML 125 ML IV (04:02)
[2020-12-29 04:38] VITALS: BP 114/64; PULSE 75; RESP 18; TEMP 37.1; O2SAT 96
[2020-12-29] MEDS: CEFAZOLIN 2 GM/100 ML FROZ.PIGGY IV (06:27)
[2020-12-29] MEDS: PANTOPRAZOLE 20 MG TABLET PO (06:31)
[2020-12-29 07:48] VITALS: BP 126/72; PULSE 71; RESP 16; TEMP 36.8; O2SAT 97
--- NOTE | 2020-12-29 08:03 | PC.NURSE ---
Addendum entered by Coco Castellanos R.N. 12/29/20 13:32: Patient medicated with dilaudid which seems to work better for patient then oxycodone. Up to the commode with 1 PA and walker. Patient had a medium bm and is now going to morning caregiver training with his son. Original Note: Assess- Patient is A&Ox3, he denies pain at this time. Patient has two picco drains in place that are cdi, with a immobilizer over his l. leg from thigh to lower calf. He is using the urinal to void, yellow urine present. Patient is waiting for breakfast and would like to talk to the PA or Doctor about maybe switching his pain medication to dilaudid. We will keep him on PO medication today, patient states that he may be going home today.
[2020-12-29] MEDS: hydroCHLOROthiazide 25 MG TABLET PO (08:52)
[2020-12-29] MEDS: ACETAMINOPHEN 325 MG TABLET 975 MG PO ×2 (08:52→15:32)
[2020-12-29] MEDS: DOCUSATE 100 MG CAPSULE PO (08:52)
[2020-12-29] MEDS: ASPIRIN EC 325 MG TABLET PO (08:55)
--- NOTE | 2020-12-29 09:06 | P.PN_ITS ---
Subjective Subjective Date Patient Seen: 12/29/20 Time Patient Seen: 09:06 Interval history: POD #1 s/p Quad tendon repair with Dr. Phan. Patient complaints of pain not well controlled with oxycodone. He also complains of muscle spasms and tightness of the quad. He took Vistaril after his initial surgery and did not like how he felt on it. He has not been up and out of bed yet. He has been well-versed with hollie dressings in the past and understands how to care for his dressing. Exam Vital Signs (past 8 hours): - 12/29/20 04:38 12/29/20 07:48 Temperature 98.7 F 98.3 F Pulse Rate 75 71 Respiratory Rate 18 16 Blood Pressure 114/64 126/72 Pulse Oximetry 96 97 Oxygen Delivery Method Room Air Oxygen Flow Rate 0 Narrative Exam Narrative: Patient is sitting up in bed no acute distress. He is alert and oriented x3. Hollie dressings CDI, on and functioning. Knee immobilizer well fitting and in place. Ramirez wrap from foot to mid thigh. He is able to wiggle his toes. Brisk capillary refill throughout toes. Objective Labs Result Diagrams: 12/28/20 21:00 Labs: Laboratory Results - last 24 hr 12/28/20 21:00 Hgb 8.9 L Hct 26.4 L PFSH Medical History Arthritis Chronic insomnia Disc degeneration, lumbar Flat feet, bilateral Former smoker GERD (gastroesophageal reflux disease) Gynecomastia Hearing loss History of cellulitis History of diverticulitis Hyperlipidemia Hypertension Low back pain Mixed hyperlipidemia Obesity Osteoarthritis Primary osteoarthritis of left knee Venous insufficiency Vision changes Weight gain Surgical History H/O repair of rotator cuff History of colonoscopy History of dental surgery History of mandibular surgery History of open reduction and internal fixation (ORIF) procedure History of partial knee replacement Hx of hand surgery Hx of left knee surgery Family History Father Heart disease Social History marital status: household members: none occupational status: employed Smoking Status: Former smoker alcohol intake: current substance use type: does not use Assessment & Plan Post-op Postoperative Procedures: Procedures Operation Date: 12/28/20 14:00 Actual Procedures Side Surgeon p Quad tendon repair Left Davis Phan MD Patient will mobilize with physical therapy today. He is to be nonweightbearing on left lower extremity and no knee flexion passive or active. We reviewed hollie dressing instructions. ASA for VTE prophylaxis. Given his history of left lo wer extremity swelling we discussed at length compression and elevation. She changed her pain medication to Dilaudid and Flexeril. If patient had adequate pain control, and transfer safely with PT he may be able to go home today.
--- NOTE | 2020-12-29 09:09 | CM.DANOTE ---
Addendum entered by Dawn Rascon LPN 12/29/20 15:57: DC order noted. Checked with SUSAN Dang who had just finished working with pt and his very able son for a caregiving session. Pt will be going to his son's home for recovery. He is to followup in orthopedic clinic. No d/c needs identified by the care team members. Original Note: Discharge Planning/Care Management DCP: case received, EMR reviewed. Will discuss this morning in Team Rounds. Pt is a 75 year old male who admitted yesterday for a scheduled L knee arthrotomy and quad tendon repair. Payer: Medicare and [employer] PCP: Dr. Myriam Cazares Anticipate PT will see pt. No notes carrently available. Will check in with pt and follow accordingly. CM Discharge Assessment Start: 12/29/20 09:07 Freq: Status: Active Protocol: Document 12/29/20 09:08 ITV (Rec: 12/29/20 09:09 ITV [id number]) Discharge Planning Assessment Advance Directives? Yes History Provided By Medical Record Household Members none Review Status In Process
--- NOTE | 2020-12-29 10:20 | PT.IIE ---
Current Diagnoses Pain, unspecified (12/28/20) Strain of left quadriceps muscle, fascia and tendon, initial encounter (12/28/20) Presence of left artificial knee joint (12/28/20) Surgery Performed Operation Date: 12/28/20 14:00 Actual Procedures p Quad tendon repair(Left) - Davis Phan MD Surgical History (Last Reviewed 12/29/20 @ 09:10 by Flora Krause PA-C) H/O repair of rotator cuff History of colonoscopy History of dental surgery History of mandibular surgery History of open reduction and internal fixation (ORIF) procedure History of partial knee replacement Hx of hand surgery Hx of left knee surgery Medical History (Last Reviewed 12/29/20 @ 09:10 by Flora Krause PA-C) Arthritis Chronic insomnia Disc degeneration, lumbar Flat feet, bilateral Former smoker GERD (gastroesophageal reflux disease) Gynecomastia Hearing loss History of cellulitis History of diverticulitis Hyperlipidemia Hypertension Low back pain Mixed hyperlipidemia Obesity Osteoarthritis Primary osteoarthritis of left knee Venous insufficiency Vision changes Weight gain Physical Therapy Inpatient Evaluation/Re-Eval M1 PT/OT-IP Prior Functional Status Start: 12/29/20 12:53 Freq: NEEDED Status: Active Protocol: Document 12/29/20 10:20 AB (Rec: 12/29/20 13:07 AB [email or web address]) Medical Review Prior Functional Status Medical History Reviewed Yes Communication able to make needs known Mobility and Gait pt stated that he is indpeendent with all mobilities and ambulation without AD. pt was still able to drive Social History Household Members none Number of Floors (Floors) One Floor Number of Stairs To Enter/Railing? 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 stated that his sons will stay and assists him at home M2 PT-IP Current Condition Start: 12/29/20 12:53 Freq: NEEDED Status: Active Protocol: Document 12/29/20 10:20 AB (Rec: 12/29/20 13:07 AB [id number]) Physical Therapy Current Condition Current Condition Evaluation Date 12/29/20 Treatment Diagnosis s/p chayito-patellar repair & quad tendon repair; difficulty in walking Onset Date 12/28/20 Precautions Brace knee immobilizer LLE Other Precautions No PROM/AROM on L knee Weight Bearing Status Weight Bearing Status Non-Weight Bearing Allowed Weight Bearing Amount (enter % LLE NWB or #) (%) M3 PT-IP Subjective Start: 12/29/20 12:53 Freq: NEEDED Status: Active Protocol: Document 12/29/20 10:20 AB (Rec: 12/29/20 13:07 [email or web address]) Subjective Physical Therapy Visit Type Type Initial Evaluation Visit Start Time 10:20 Visit Stop Time 11:07 Total Visit Minutes 47 Number of POST TRONIC MACHINE OPERATOR Visits 0 Physical Therapy Visit Comments Patient Comments pt is agreeable to do PT Therapy Pain Assessment Pain When Pain Assessed During Mobility Pain Present Pain Present Pain Reported Location knee Scale Used 6/10 Pain Behaviors Guarding,Holding Area Pain Management Techniques Apply Cold,Distraction, Elevation,Modification of Treatment,Re-positioning, Timing of Activity with Medications M4 PT-IP Mobility and Gait Start: 12/29/20 12:53 Freq: NEEDED Status: Active Protocol: Document 12/29/20 10:20 AB (Rec: 12/29/20 13:07 [email or web address]) PT-Bed Mobility Assessment Supine to Sit Supine to Sit Moderate Assistance,1 Person Assistance PT-Transfer Assessment Sit to and From Stand Sit to and from Stand Moderate Assistance,1 Person Assistance,Use of Upper Extremities Equipment Transfer Assistive Device Gait Belt,Front Wheeled Walker Orthotic/Prosthetic Devices or Brace: No Transfers Transfer Destination Chair Transfer Technique Stand Step Pivot Transfer Ability Level of Assist Moderate Assistance,1 Person Assistance,Use of Upper Extremities Comments Mobility Comments educated pt on precautions and NWB on LLE. assisted with L knee immobilizer adjustment pt completed supine to sit mod A and cues. requires assist with LLE movement to EOB. completed sit to stand mod A and cues and was able to complete step transfer using FWW mod A to chair. positioned pt on the chair. call light and table placed within reach. educated pt on equipement needs: w/c and pt stated that he can borrow his neighbor's w /c but is not sure if it has elevating leg rest for LLE. also informed pt regarding need for caregiver training and stated that he will call his son to come in today at 130-200 for training. Gait Assessment Comments Gait Comments unable at this time PT-Balance Assessment Sitting Balance and Reactions Static Sitting Balance Ability Good Dynamic Sitting Balance Ability Good Standing Balance and Reactions Static Standing Balance Ability Fair Dynamic Standing Balance Ability Poor Device Used FWW M5 PT-IP Objective Assessments Start: 12/29/20 12:53 Freq: NEEDED Status: Active Protocol: Document 12/29/20 10:20 AB (Rec: 12/29/20 13:07 AB [email or web address]) Orientation Orientation/Cognition Level of Alertness Alert Orientation Name,Place,Situation Language Function Ability No Deficits Noted Safety Awareness Decreased Safety Awareness Strength Lower Extremity Strength Assessment Left Impaired Muscle Tone Muscle Tone WNL Yes M6 PT-IP Treatment Start: 12/29/20 12:53 Freq: NEEDED Status: Active Protocol: Document 12/29/20 10:20 AB (Rec: 12/29/20 13:07 AB [id number]) Physical Therapy Treatment Education Education Provided Precautions,Weight Bearing Status,Safety M7 PT-IP Assessment and Plan Start: 12/29/20 12:53 Freq: NEEDED Status: Active Protocol: Document 12/29/20 10:20 AB (Rec: 12/29/20 13:07 AB [email or web address]) PT Summary Assessment and Plan Potential Rehabilitation Potential Good Status of Condition at Evaluation Evolving Summary Impairments Pain,ROM,Strength,Balance, Coordination,Sensation,Tone, Cognition,Bed Mobility, Transfers,Gait,Activity Tolerance Assessment Summary pt requiring mod A with mobility. c/o increase pain with mobility and is NWB on LLE affecting mobility independence. pt plans to go home with his son to assist him. caregiver training is set up at 130-200pm today. also informed pt regarding w/c need and pt understood. pt will also need HHPT. Goals Bed Mobility Goal Standby Assistance Transfer Goal Standby Assistance,Front Wheeled Walker Gait Goal Standby Assistance,Front Wheel Walker Gait Distance 50 Days to Meet Goals 5 Frequency of Treatment Frequency Of Treatment Twice a Day Treatment Plan Physical Therapy Treatment Plan Bed Mobility Training,Transfer Training,Gait Training, Therapeutic Exercise,Balance Retraining,Post Op Education, Discharge Planning,Hot or Cold Pack,Neuromuscular Re-ed, Coordination Retraining,Manual Therapy Other Recommendations and Next Treatment caregiver training 130-2 pm Recommendations To Nursing Amount of Assist Needed 1 Person Assist Discharge Recommendations PT Discharge Recommendations Home with 01/06 Assist Available,Home Health Transportation Needs at Discharge Private Vehicle,Wheelchair/ Cabulance
[2020-12-29 11:25] VITALS: BP 129/63; PULSE 83; RESP 16; TEMP 36.9; O2SAT 96
[2020-12-29] MEDS: HYDROMORPHONE 2 MG TABLET PO ×2 (12:28→16:15)
[2020-12-29] MEDS: BENAZEPRIL 20 MG TABLET PO (12:28)
--- NOTE | 2020-12-29 14:56 | PT.IPTN ---
Current Diagnoses Pain, unspecified (12/28/20) Strain of left quadriceps muscle, fascia and tendon, initial encounter (12/28/20) Presence of left artificial knee joint (12/28/20) Surgery Performed Operation Date: 12/28/20 14:00 Actual Procedures p Quad tendon repair(Left) - Davis Phan MD Physical Therapy Treatment Note M2 PT-IP Current Condition Start: 12/29/20 12:53 Freq: NEEDED Status: Active Protocol: Document 12/29/20 10:20 AB (Rec: 12/29/20 13:07 AB [id number]) Physical Therapy Current Condition Current Condition Evaluation Date 12/29/20 Treatment Diagnosis s/p chayito-patellar repair & quad tendon repair; difficulty in walking Onset Date 12/28/20 Precautions Brace knee immobilizer LLE Other Precautions No PROM/AROM on L knee Weight Bearing Status Weight Bearing Status Non-Weight Bearing Allowed Weight Bearing Amount (enter % LLE NWB or #) (%) M3 PT-IP Subjective Start: 12/29/20 12:53 Freq: NEEDED Status: Active Protocol: Document 12/29/20 14:24 CLB (Rec: 12/29/20 15:31 CLB [id number]) Subjective Physical Therapy Visit Type Type Treatment Note Visit Start Time 14:24 Visit Stop Time 14:56 Total Visit Minutes 32 Notes Bart Jasbir present for CG training. Number of STEEL WHEEL ENGRAVER Visits 1 Physical Therapy Visit Comments Patient Comments pt is agreeable to do PT for CG training with bart Martell. Therapy Pain Assessment Pain When Pain Assessed During Mobility Pain Present Pain Present Pain Reported Location knee Intensity 5 Scale Used Numeric (0 - 10) Pain Behaviors Guarding,Holding Area Pain Management Techniques Modification of Treatment,Re- positioning,Timing of Activity with Medications M4 PT-IP Mobility and Gait Start: 12/29/20 12:53 Freq: NEEDED Status: Active Protocol: Document 12/29/20 14:24 CLB (Rec: 12/29/20 15:31 CLB [id number]) PT-Bed Mobility Assessment Supine to Sit Supine to Sit Minimal Assistance,1 Person Assistance Sit to Supine Sit to Supine Minimal Assistance,1 Person Assistance Scooting Scooting to Edge of Bed Minimal Assistance PT-Transfer Assessment Sit to and From Stand Sit to and from Stand Contact Guard Assistance,1 Person Assistance,Use of Upper Extremities Equipment Transfer Assistive Device Gait Belt,Front Wheeled Walker Orthotic/Prosthetic Devices or Brace: No Transfers Transfer Destination Bed,Chair,Wheelchair Transfer Technique Stand Step Pivot Transfer Ability Level of Assist Contact Guard Assistance,1 Person Assistance,Use of Upper Extremities Comments Mobility Comments educated son on NWB status of LLE and adjustment of immobilizer. Pt able to stand CGA from chair and transferred from chair to bed w/FWW/CGA and cues for NWB. Pt sat on bed CGA then required Min A of LLE to sit<>supine with pt's son assisting. Pt stood and transferred to WC with son providing CGA. Pt rested in WC before transferring back to chair CGA. Son will be available to assist pt with all mobility. Gait Assessment Comments Gait Comments unable at this time PT-Balance Assessment Sitting Balance and Reactions Static Sitting Balance Ability Good Dynamic Sitting Balance Ability Good Standing Balance and Reactions Static Standing Balance Ability Fair Dynamic Standing Balance Ability Poor Device Used FWW M5 PT-IP Objective Assessments Start: 12/29/20 12:53 Freq: NEEDED Status: Active Protocol: Document 12/29/20 10:20 AB (Rec: 12/29/20 13:07 AB [id number]) Orientation Orientation/Cognition Level of Alertness Alert Orientation Name,Place,Situation Language Function Ability No Deficits Noted Safety Awareness Decreased Safety Awareness Strength Lower Extremity Strength Assessment Left Impaired Muscle Tone Muscle Tone WNL Yes M6 PT-IP Treatment Start: 12/29/20 12:53 Freq: NEEDED Status: Active Protocol: Document 12/29/20 10:20 AB (Rec: 12/29/20 13:07 AB [email or web address]) Physical Therapy Treatment Education Education Provided Precautions,Weight Bearing Status,Safety M7 PT-IP Assessment and Plan Start: 12/29/20 12:53 Freq: NEEDED Status: Active Protocol: Document 12/29/20 14:24 CLB (Rec: 12/29/20 15:31 CLB [id number]) PT Summary Assessment and Plan Potential Rehabilitation Potential Good Status of Condition at Evaluation Evolving Summary Impairments Pain,ROM,Strength,Balance, Coordination,Sensation,Tone, Cognition,Bed Mobility, Transfers,Gait,Activity Tolerance Assessment Summary Pt improving with all mobility requiring CGA for sit<>stand, sit<>supine and Min A of LLE in and out of bed. Pt bart Martell is able to assist pt with all mobility and will be available to assist. Pt has FWW, shower chair, BSC and WC, pt also has ramp to enter home. This STEEL WHEEL ENGRAVER recommended pt wear shoe on RLE to assist with NWB on LLE. Goals Bed Mobility Goal Standby Assistance Transfer Goal Standby Assistance,Front Wheeled Walker Gait Goal Standby Assistance,Front Wheel Walker Gait Distance 50 Days to Meet Goals 5 Frequency of Treatment Frequency Of Treatment Twice a Day Treatment Plan Physical Therapy Treatment Plan Bed Mobility Training,Transfer Training,Gait Training, Therapeutic Exercise,Balance Retraining,Post Op Education, Discharge Planning,Hot or Cold Pack,Neuromuscular Re-ed, Coordination Retraining,Manual Therapy Recommendations To Nursing Amount of Assist Needed 1 Person Assist Discharge Recommendations PT Discharge Recommendations Home with 01/06 Assist Available,Home Health Transportation Needs at Discharge Private Vehicle
--- NOTE | 2020-12-29 16:54 | PC.NURSE ---
Pt A&OX3. discharge instructions and paper work given to patient. IV removed. all belongings returned to patient.
== END 2020-12-29 16:20 | disposition home or self-care (01) ==
LOC: OR 12:24 → AC 15:57
PROVIDERS: PCP Internal Medicine; Referring Provider Internal Medicine; Visit Provider Orthopaedic Surgery Adult Reconstructive Orthopaedic Surgery
PROC: 0SRD0JZ Replacement of Left Knee Joint with Synthetic Substitute, Open Approach (ICD-10-PCS; CPT 27447; principal; 2020-12-28 14:00)
DX: S76.112A Strain of left quadriceps muscle, fascia and tendon, initial encounter (principal); S76.812A Strain of other specified muscles, fascia and tendons at thigh level, left thigh, initial encounter; Z96.652 Presence of left artificial knee joint; W00.0XXA Fall on same level due to ice and snow, initial encounter; Y93.01 Activity, walking, marching and hiking
CPT/HCPCS: 27380; 27385; 36415; 85014; 85018; 97162; 97530; J0690; J1100; J1170; J1885; J2250; J2270; J2405; J2704; J3010

== ENCOUNTER → 2021-08-26 13:57 | Outpatient (CLI) | payer MEDICARE, OTHER, SELFPAY ==
[2020-12-28 18:42] VITALS: BMI 30.9
[2021-08-26 17:06] LABS: COVID19 -Nasal RAPID POSITIVE (Negative)
== END ==
PROVIDERS: PCP Internal Medicine; Visit Provider Physician Assistant
DX: U07.1 COVID-19 (principal); Z20.822 Contact with and (suspected) exposure to COVID-19
CPT/HCPCS: 87635

== ENCOUNTER 2021-08-27 17:16 | Emergency (ER) | payer MEDICARE, OTHER, SELFPAY ==
[2020-12-28 18:42] VITALS: BMI 30.9
[2021-08-27 17:22] VITALS: BP 168/77; PULSE 70; RESP 16; TEMP 36.4; O2SAT 95; BMI 30.7
--- NOTE | 2021-08-27 18:04 | ED.RECABL ---
HPI - Recheck/Abnormal Lab/Rx <Felton Atwood PA-C - Last Filed: 08/27/21 18:08> General Chief Complaint: Recheck/Abnormal Lab/Rx Stated Complaint: COV+, WANTS MONOCLONIAL REFFERAL. Time Seen by Provider: 08/27/21 17:31 Source: patient Mode of arrival: Ambulatory Limitations: no limitations History of Present Illness HPI narrative: 76-year-old male with past medical history hyperlipidemia, hypertension presents to the ED seeking monoclonal antibody treatment for COVID-19. Patient was diagnosed with COVID earlier today, has been experiencing symptoms since 08/22/2021. Reports mild headaches, nasal congestion, cough, shortness of breath on exertion. Denies fevers, chills, chest pain, nausea, vomiting, diarrhea. Patient spoke with his primary care provider about getting the monoclonal antibody treatment, was sent to the ED for a referral. Related Data Home Medications Medication Instructions Recorded Confirmed atorvastatin 10 mg tablet (Lipitor) 10 mg PO DAILY #0 11/12/16 12/28/20 benazepril 20 1 tab PO DAILY #0 11/12/16 12/28/20 mg-hydrochlorothiazide 25 mg tablet lansoprazole 15 mg capsule,delayed 15 mg PO DAILY #0 11/12/16 12/28/20 release (Prevacid) omega 2-zqe-cay-fish oil 1,000 mg 1,000 mg PO DAILY #0 03/29/17 12/28/20 (120 mg-180 mg) capsule (Fish Oil) multivitamin 1 tab PO DAILY 01/03/19 12/28/20 aspirin 325 mg tablet 325 mg PO DAILY 09/06/20 12/28/20 coenzyme Q10 10 mg capsule 10 mg PO ONCE 09/06/20 12/28/20 diphenhydramine HCl 25 mg capsule 25 mg PO BEDTIME 09/06/20 12/28/20 (Allergy (diphenhydramine)) Previous Rx's Medication Instructions Recorded acetaminophen 325 mg tablet 650 mg PO TID #40 tab 11/29/20 docusate sodium 100 mg capsule 100 mg PO BID #40 cap 11/29/20 (DOK) cyclobenzaprine 10 mg tablet 10 mg PO Q8HR PRN #20 tab 12/29/20 docusate sodium 100 mg capsule 100 mg PO BID #20 cap 12/29/20 (DOK) hydromorphone 2 mg tablet 2 mg PO Q4HR PRN #30 tab 12/29/20 Allergies Allergy/AdvReac Type Severity Reaction Status Date / Time ampicillin [AMPICILLIN] Allergy Intermediate Rash - Verified 08/27/21 17:25 turned purple/ER levofloxacin [From LEVAQUIN] Allergy Intermediate HALLUCINATI Verified 08/27/21 17:25 ON ceftriaxone [From ROCEPHIN] Allergy Mild Rash Verified 08/27/21 17:25 cephalexin [CEPHALEXIN] Allergy Mild Rash Verified 08/27/21 17:25 clindamycin Allergy Mild Rash - PT Verified 08/27/21 17:25 DENIES ALLERGY erythromycin base Allergy Mild Eye Verified 08/27/21 17:25 [ERYTHROMYCIN BASE] Swelling (from ointment) penicillin V Allergy Mild Rash Verified 08/27/21 17:25 Penicillins [PENICILLINS] Allergy Mild Rash Verified 08/27/21 17:25 Review of Systems <Felton Atwood PA-C - Last Filed: 08/27/21 18:08> Constitutional Constitutional: Denies chills, Denies fatigue, Denies fever(s), Denies frequent falls, Reports headache(s), Denies lethargy and Denies weakness Eyes Eyes: Denies change in vision, Denies eye discharge, Denies irritation and Denies loss of vision ENT Ears, Nose, Mouth, and Throat: Denies change in voice, Denies dizziness, Reports headache(s), Reports nasal congestion, Denies neck pain, Denies sore throat and Denies throat swelling Cardiovascular Cardiovascular: Denies chest pain, Denies irregular heart rhythm, Denies lightheadedness, Denies palpitations, Denies dyspnea and Reports dyspnea on exertion Respiratory Respiratory: Reports cough, Denies dyspnea, Reports dyspnea on exertion and Denies wheezing Gastrointestinal Gastrointestinal: Denies abdominal pain, Denies change in bowel habits, Denies diarrhea, Denies nausea and Denies vomiting Musculoskeletal Musculoskeletal: Denies neck pain and Denies numbness Integumentary/Breasts Skin/Breast: Denies pruritus, Denies erythema, Denies rash and Denies wounds Neurologic Neurologic: Denies behavioral changes, Denies confusion, Denies dizziness, Denies frequent falls, Reports headache(s), Denies loss of vision, Denies numbness and Denies weakness Psychiatric Psychiatric: Denies anxiety, Denies behavioral changes, Denies confusion, Denies depression, Denies homicidal ideation and Denies suicidal ideation Endocrine Endocrine: Denies fatigue, Denies flushing and Denies palpitations Hematologic/Lymphatic Hematologic/Lymphatic: Denies easy bruising Allergic/Immunologic Allergic/Immunologic: Denies urticaria, Denies throat swelling and Denies wheezing Patient History <Felton Atwood PA-C - Last Filed: 08/27/21 18:08> Medical History Arthritis Chronic insomnia Disc degeneration, lumbar Flat feet, bilateral Former smoker GERD (gastroesophageal reflux disease) Gynecomastia Hearing loss History of cellulitis History of diverticulitis Hyperlipidemia Hypertension Low back pain Mixed hyperlipidemia Obesity Osteoarthritis Primary osteoarthritis of left knee Venous insufficiency Vision changes Weight gain Surgical History H/O repair of rotator cuff History of colonoscopy History of dental surgery History of mandibular surgery History of open reduction and internal fixation (ORIF) procedure History of partial knee replacement Hx of hand surgery Hx of left knee surgery Family History Father Heart disease Social History marital status: household members: none occupational status: employed Smoking Status: Former smoker alcohol intake: current substance use type: does not use Smoking Status: Former smoker alcohol intake frequency: holidays/special occasions only Alcohol type: hard liquor Substance Use Type: does not use Exam <Felton Atwood PA-C - Last Filed: 08/27/21 18:08> Initial Vital Signs Initial Vital Signs: Vital Signs Temperature 97.6 F 08/27/21 17:22 Pulse Rate 70 08/27/21 17:22 Respiratory Rate 16 08/27/21 17:22 Blood Pressure 168/77 H 08/27/21 17:22 Pulse Oximetry 95 08/27/21 17:22 Const General: cooperative HENMT Head: normocephalic and atraumatic Ears: external ears normal and TM's normal bilaterally Nose: external nose normal and No nasal discharge Face and sinus: sinuses nontender, face symmetric, no sinus tenderness and No dry mucous membranes Mouth: oral mucosae normal and moist mucous membranes Teeth and gingiva: dentition normal Throat: tonsils normal and uvula midline Eyes General: appearance normal, both eyes and all related structures Eyelids: eyelids normal Conjunctivae: conjunctivae normal Sclera: sclerae normal Pupils: PERRL EOM: EOM intact bilaterally Neck Neck: normal visual inspection, trachea midline, No lymphadenopathy, No midline deformity and No JVD Lymphatic: No lymphedema Chest Chest: normal inspection of the chest Resp Effort & Inspection: normal respiratory effort, able to speak in complete sentences, no respiratory distress and no use of accessory muscles Auscultation: clear to auscultation bilaterally, no rales, no rhonchi and no wheezes Cardio Rate: regular rate Rhythm: regular rhythm Heart Sounds: no click, no gallops, no murmurs and no rubs Pulses: normal peripheral pulses GI Inspection: non-distended Palpation: soft, no hepatosplenomegaly, No guarding, No pulsatile mass and No tender Auscultation: normal bowel sounds Back/Spine/Pelvis Back: No CVA tenderness Cervical Spine: cervical ROM normal and No pain with cervical ROM Thoracic/Lumbar Spine: thoracic and lumbar spine normal to inspection Skin General: no rashes or lesions noted, No jaundice and No petechiae Neuro General: patient alert, patient oriented x3, gait normal and no focal motor deficits Speech: speech normal Extrem General: full ROM, no clubbing, cyanosis or edema, no pedal edema and no calf tenderness Psych Appearance: well kempt Mental Status: mental status grossly normal Attitude: cooperative Thought Content: normal and suicidality Judgment: judgment good <DO Diomedes Gongora Last Filed: 08/27/21 18:16> Initial Vital Signs Initial Vital Signs: Vital Signs Temperature 97.6 F 08/27/21 17:22 Pulse Rate 70 08/27/21 17:22 Respiratory Rate 16 08/27/21 17:22 Blood Pressure 168/77 H 08/27/21 17:22 Pulse Oximetry 95 08/27/21 17:22 Course <Felton Atwood PA-C - Last Filed: 08/27/21 18:08> Vital Signs Vital signs: Vital Signs - 8 hr 08/27/21 17:22 Temperature 97.6 F Pulse Rate 70 Respiratory Rate 16 Blood Pressure 168/77 H Pulse Oximetry 95 <DO Diomedes Gongora Last Filed: 08/27/21 18:16> Vital Signs Vital signs: Vital Signs - 8 hr 08/27/21 17:22 Temperature 97.6 F Pulse Rate 70 Respiratory Rate 16 Blood Pressure 168/77 H Pulse Oximetry 95 MDM - Recheck/Abnormal Lab/Rx <Felton Atwood PA-C - Last Filed: 08/27/21 18:08> [facility] Narrative Medical decision making narrative: 76-year-old male with past medical history hyperlipidemia, hypertension presents to the ED seeking monoclonal antibody treatment for COVID-19. Patient is stable in the ED, saturating well at 95% on room air. Patient does meet criteria for monoclonal antibody treatment. Will give referral. Will discharge home with ED return precautions. Discharge Plan Departure Patient Disposition: Home Clinical Impression: COVID-19 Instructions: DI for COVID-19 (Suspected or Confirmed ) Activity Restrictions/Additional Instructions: You were evaluated in the ED today for a monoclonal antibody treatment for COVID-19. Given that you meet criteria, we will send a referral to infusion [facility]. They will call you in 24-48 hours to schedule an appointment. In the meanwhile, please return to the ED if you have worsening shortness of breath, chest pain, fever, chills. Prescriptions: No Action benazepril-hydrochlorothiazide 20 MG/25 MG tablet 1 tab PO DAILY Qty: 0 RF: 0 atorvastatin [Lipitor] 10 MG tablet 10 mg PO DAILY Qty: 0 RF: 0 lansoprazole [Prevacid] 15 MG capsule,delayed release(DR/EC) 15 mg PO DAILY Qty: 0 RF: 0 omega 2-jrp-gdm-fish oil [Fish Oil] 1,000 MG capsule 1,000 mg PO DAILY Qty: 0 RF: 0 aspirin 325 mg tablet 325 mg PO DAILY RF: 0 coenzyme Q10 10 mg capsule 10 mg PO ONCE RF: 0 diphenhydramine HCl [Allergy (diphenhydramine)] 25 mg capsule 25 mg PO BEDTIME RF: 0 acetaminophen 325 mg Tablet 650 mg PO TID Qty: 40 RF: 0 docusate sodium [DOK] 100 mg Capsule 100 mg PO BID Qty: 40 RF: 0 multivitamin Tablet 1 tab PO DAILY RF: 0 docusate sodium [DOK] 100 mg Capsule 100 mg PO BID Qty: 20 RF: 0 cyclobenzaprine 10 mg Tablet 10 mg PO Q8HR PRN (Reason: Spasms) Qty: 20 RF: 1 hydromorphone 2 mg Tablet 2 mg PO Q4HR PRN (Reason: Pain, Severe (7-10)) Qty: 30 RF: 0 Referrals: Isaías Cazares MD [Primary Care Provider] - <Taj Coker DO - Last Filed: 08/27/21 18:16> Cosign ED Attending Cosignature Attestation: Dr Coker Co-Sign Statement: I was available for consultation during this patient's emergency department visit. This chart is signed by myself for administrative purposes only. I did not have direct contact with this patient during this visit. They were seen independently by the APC.
== END 2021-08-27 18:25 | disposition home or self-care (01) ==
PROVIDERS: Emergency Provider Student in an Organized Health Care Education/Training Program; PCP Internal Medicine
DX: U07.1 COVID-19 (principal)
CPT/HCPCS: 99281

== ENCOUNTER 2021-09-01 12:07 | Emergency (ER) | payer MEDICARE, OTHER, SELFPAY ==
[2020-12-28 18:42] VITALS: BMI 30.9
[2021-09-01 12:18] VITALS: BP 221/98; PULSE 69; RESP 16; TEMP 36.6; O2SAT 98; BMI 30.4
--- NOTE | 2021-09-01 13:00 | PC.NURSE ---
Patient in the ED today for asymptomatic hypertension.
[2021-09-01 13:04] VITALS: BP 187/88; PULSE 56; RESP 16; O2SAT 97
[2021-09-01 13:05] VITALS: BP 187/88; PULSE 57; O2SAT 93
--- NOTE | 2021-09-01 13:12 | ED_ITS ---
HPI - General Adult General Chief complaint: Hypertension Stated complaint: High BP Time Seen by Provider: 09/01/21 12:15 History of Present Illness HPI narrative: 76-year-old male former smoker with history of hypertension and hyperlipidemia is currently COVID positive and presents with a chief complaint of elevated blood pressures at home. He denies any symptoms such as headache, blurred vision or trouble with speech. He has no chest pain, nausea, vomiting or abdominal pain. He was able to get monoclonal antibodies for the treatment of his COVID as an outpatient and is doing quite well on the whole. His blood pressures have been in the 180s and 190s and he presents for evaluation. He has been taking the same blood pressure medication for 30-40 years and denies any change in the dosing regimen Related Data Home Medications Medication Instructions Recorded Confirmed atorvastatin 10 mg tablet (Lipitor) 10 mg PO DAILY #0 11/12/16 12/28/20 benazepril 20 1 tab PO DAILY #0 11/12/16 12/28/20 mg-hydrochlorothiazide 25 mg tablet lansoprazole 15 mg capsule,delayed 15 mg PO DAILY #0 11/12/16 12/28/20 release (Prevacid) omega 2-rox-pxz-fish oil 1,000 mg 1,000 mg PO DAILY #0 03/29/17 12/28/20 (120 mg-180 mg) capsule (Fish Oil) multivitamin 1 tab PO DAILY 01/03/19 12/28/20 aspirin 325 mg tablet 325 mg PO DAILY 09/06/20 12/28/20 coenzyme Q10 10 mg capsule 10 mg PO ONCE 09/06/20 12/28/20 diphenhydramine HCl 25 mg capsule 25 mg PO BEDTIME 09/06/20 12/28/20 (Allergy (diphenhydramine)) Previous Rx's Medication Instructions Recorded acetaminophen 325 mg tablet 650 mg PO TID #40 tab 11/29/20 docusate sodium 100 mg capsule 100 mg PO BID #40 cap 11/29/20 (DOK) cyclobenzaprine 10 mg tablet 10 mg PO Q8HR PRN #20 tab 12/29/20 docusate sodium 100 mg capsule 100 mg PO BID #20 cap 12/29/20 (DOK) hydromorphone 2 mg tablet 2 mg PO Q4HR PRN #30 tab 12/29/20 amlodipine 5 mg tablet 5 mg PO DAILY #20 tab 09/01/21 Allergies Allergy/AdvReac Type Severity Reaction Status Date / Time ampicillin [AMPICILLIN] Allergy Intermediate Rash - Verified 08/27/21 17:25 turned purple/ER levofloxacin [From LEVAQUIN] Allergy Intermediate HALLUCINATI Verified 08/27/21 17:25 ON ceftriaxone [From ROCEPHIN] Allergy Mild Rash Verified 08/27/21 17:25 cephalexin [CEPHALEXIN] Allergy Mild Rash Verified 08/27/21 17:25 clindamycin Allergy Mild Rash - PT Verified 08/27/21 17:25 DENIES ALLERGY erythromycin base Allergy Mild Eye Verified 08/27/21 17:25 [ERYTHROMYCIN BASE] Swelling (from ointment) penicillin V Allergy Mild Rash Verified 08/27/21 17:25 Penicillins [PENICILLINS] Allergy Mild Rash Verified 08/27/21 17:25 Review of Systems Review of Systems Narrative: GENERAL: Denies chills, fatigue, malaise, fever, sweats. HEENT: Denies sinus pain, ear pain, sore throat, difficulty swallowing, dizziness. RESPIRATORY: Denies dyspnea, cough, wheezing, hemoptysis, sputum. CARDIOVASCULAR: Denies chest pain, palpitations, orthopnea, edema, GASTROINTESTINAL: Denies nausea, vomiting, abdominal pain, diarrhea, constipation, melena. : Denies dysuria, frequency, incontinence, hematuria, urinary retention. MUSCULOSKELETAL: denies weakness, joint pain, or bony pain SKIN: Denies rash, skin lesions, or other NEUROLOGIC: Denies weakness, headache, numbness, change in speech, confusion, seizures, incoordination. PSYCHIATRIC: No concerning psychosocial issues. 12 point review of systems is negative except for those stated above Patient History Medical History Arthritis Chronic insomnia Disc degeneration, lumbar Flat feet, bilateral Former smoker GERD (gastroesophageal reflux disease) Gynecomastia Hearing loss History of cellulitis History of diverticulitis Hyperlipidemia Hypertension Low back pain Mixed hyperlipidemia Obesity Osteoarthritis Primary osteoarthritis of left knee Venous insufficiency Vision changes Weight gain Surgical History H/O repair of rotator cuff History of colonoscopy History of dental surgery History of mandibular surgery History of open reduction and internal fixation (ORIF) procedure History of partial knee replacement Hx of hand surgery Hx of left knee surgery Family History Father Heart disease Social History marital status: household members: none occupational status: employed Smoking Status: Former smoker alcohol intake: current substance use type: does not use Smoking Status: Former smoker alcohol intake frequency: holidays/special occasions only Alcohol type: hard liquor Substance Use Type: does not use Exam Narrative Exam Narrative: GEN: AOx3 and in mild distress EYES: Pupils are equal, round, and reactive to light and accommodation. Extraoccular muscles are intact bilaterally. There is no subconjunctival hemorrhage or exudate. CHEST: Lungs are clear to auscultation bilaterally and free of wheezes, rales, or rhonchi. Heart rate is regular rhythm, there are no murmurs, clicks, rubs, or gallops. There is no chest wall tenderness. ABD: Abdomen is soft and nontender. There is no guarding or rebound. Bowel sounds are normal in all 4 quadrants. There is no mass or organomegaly. EXT: Full painless ROM of all extremities with no loss of sensation or strength. SKIN: Warm, pink, and dry. No erythema or rash Initial Vital Signs Initial Vital Signs: Vital Signs Temperature 97.8 F 09/01/21 12:18 Pulse Rate 69 09/01/21 12:18 Respiratory Rate 16 09/01/21 12:18 Blood Pressure 221/98 H 09/01/21 12:18 Pulse Oximetry 98 09/01/21 12:18 Course Reevaluation(s) Reevaluation #1: Patient's initial blood pressure over 200 and after 30 minutes of observation has subtle down to the 170s and 180s. He has no symptoms consistent with hypertensive emergency. Patient given return precautions, 2nd blood pressure medication added Vital Signs Vital signs: Vital Signs - 8 hr 09/01/21 12:18 09/01/21 13:04 09/01/21 13:05 Temperature 97.8 F Pulse Rate 69 56 L 57 L Respiratory Rate 16 16 Blood Pressure 221/98 H 187/88 H 187/88 H Pulse Oximetry 98 97 93 Discharge Plan Departure Patient Disposition: Home Clinical Impression: Hypertension Instructions: DI for High Blood Pressure Activity Restrictions/Additional Instructions: *You have been diagnosed with [elevated blood pressure in the absence of symptoms *What to do: *Please continue to take your regular medications as directed. [x ] New medication prescriptions sent to your pharmacy: [[facility] ] [ ] New medication written as a paper prescription [ ] No new medications given *Please follow up with your primary care provider in 2-3 days, call for an appointment. Let them know you were seen in the Emergency Department and that we ask that you be seen in follow up. We will electronically transmit a record of today's note if your PCP is in our system *If you do not have a primary care provider please contact the [facility] Resource line at [phone]. They will ask some questions about your medical history and help get you set up with a doctor in the community. *Return to Emergency Department if you should have any new, worsening or concerning symptoms, such as [fever greater than 101 F, shaking chills, worsening pain, persistent vomiting or other bothersome symptoms] Prescriptions: New amlodipine 5 mg tablet 5 mg PO DAILY Qty: 20 RF: 0 No Action benazepril-hydrochlorothiazide 20 MG/25 MG tablet 1 tab PO DAILY Qty: 0 RF: 0 atorvastatin [Lipitor] 10 MG tablet 10 mg PO DAILY Qty: 0 RF: 0 lansoprazole [Prevacid] 15 MG capsule,delayed release(DR/EC) 15 mg PO DAILY Qty: 0 RF: 0 omega 9-apa-fmz-fish oil [Fish Oil] 1,000 MG capsule 1,000 mg PO DAILY Qty: 0 RF: 0 aspirin 325 mg tablet 325 mg PO DAILY RF: 0 coenzyme Q10 10 mg capsule 10 mg PO ONCE RF: 0 diphenhydramine HCl [Allergy (diphenhydramine)] 25 mg capsule 25 mg PO BEDTIME RF: 0 acetaminophen 325 mg Tablet 650 mg PO TID Qty: 40 RF: 0 docusate sodium [DOK] 100 mg Capsule 100 mg PO BID Qty: 40 RF: 0 multivitamin Tablet 1 tab PO DAILY RF: 0 docusate sodium [DOK] 100 mg Capsule 100 mg PO BID Qty: 20 RF: 0 cyclobenzaprine 10 mg Tablet 10 mg PO Q8HR PRN (Reason: Spasms) Qty: 20 RF: 1 hydromorphone 2 mg Tablet 2 mg PO Q4HR PRN (Reason: Pain, Severe (7-10)) Qty: 30 RF: 0 Referrals: Isaías Cazares MD [Primary Care Provider] -
== END 2021-09-01 13:34 | disposition home or self-care (01) ==
PROVIDERS: Emergency Provider Emergency Medicine; PCP Internal Medicine
DX: I10 Essential (primary) hypertension (principal)
CPT/HCPCS: 99281